=== PATIENT | male | born 1965 | race Caucasian/White ===

== ENCOUNTER 2020-01-11 11:13 | Outpatient (REF) | payer OTHER, SELFPAY | END 2020-01-11 11:14 | disposition home or self-care (01) | LOC: HO.LAB 11:13 | PROVIDERS: Visit Provider Internal Medicine | DX: Z20.828 Contact with and (suspected) exposure to other viral communicable diseases (principal) | CPT/HCPCS: 87635 ==

== ENCOUNTER 2020-01-25 14:01 | Outpatient (REF) | payer OTHER, SELFPAY ==
--- NOTE | 2020-01-25 14:08 | XR_ITS ---
EXAMINATION: XR TIBIA AND FIBULA, LEFT CLINICAL INFORMATION: Left tibial pain COMPARISON: Report without films of August 23, 2005 TECHNIQUE: AP and lateral views of the left tibia and fibula were obtained. FINDINGS: There is no evidence of acute fracture or dislocation of the right tibia or fibula. There is some spurring seen involving the patellofemoral joint. There appears be some subchondral cyst formation about the medial tibial plateau and some shouldering involving the metaphyseal diaphyseal junction which may be related to previous trauma. Ankle joint appears unremarkable. XR/XR tibia fibula LT 2V IMPRESSION: No acute fracture or dislocation of the left tibia or fibula. Question old trauma involving the medial tibial plateau.
== END 2020-01-25 14:02 | disposition home or self-care (01) ==
LOC: HO.XRAY 14:01
PROVIDERS: PCP Internal Medicine; Visit Provider Internal Medicine
DX: M79.662 Pain in left lower leg (principal)
CPT/HCPCS: 73590

== ENCOUNTER 2020-02-01 08:39 | Day surgery (SDC) | payer OTHER, SELFPAY ==
[2020-01-28 15:59] VITALS: BMI 33.0
--- NOTE | 2020-01-31 09:46 | P.CONAN_ITS ---
Documented by User: Sahara Cuello 01/31/20 09:47 HPI - Anesthesia Eval Consult details Narrative: 54yo M for Colonoscopy [facility] Past Medical History Medical History BPH (benign prostatic hyperplasia) Enlarged prostate Renal calculi Sleep apnea in adult Surgical History Surgical History Hx of tonsillectomy S/P carpal tunnel release Social History Social History Alcohol intake: never Smoking Status: Never smoker Advance Directives: No Advance Directives Information Provided: No Advance Directives on File: No Meds Allergies Allergy/AdvReac Type Severity Reaction Status Date / Time Motrin Allergy Severe swelling Uncoded 01/28/20 15:57 Home Medications Medication Instructions Recorded Confirmed Type acetaminophen [Tylenol] 650 mg PO Q6H PRN 01/28/20 01/28/20 History Exam Exam Date and Time: January 31, 2020 0946 Height,Weight and Vital Signs: Height 5 ft 8 in Weight 98.43 kg Pertinent Lab Results Pertinent Lab Results: Laboratory Tests 09/19/19 09/19/19 07:47 07:47 WBC 7.7 Hgb 14.5 Hct 44.8 Plt Count 258 Sodium 140 Potassium 4.5 Chloride 104 BUN 19 H Creatinine 0.81 Assessment and Plan Assessment Anesthesia Assessment: Chart Reviewed Documented by User: Junior Velasquez 02/01/20 09:33 [facility] Past Medical History Medical History BPH (benign prostatic hyperplasia) Enlarged prostate Renal calculi Sleep apnea in adult Surgical History Surgical History Hx of tonsillectomy S/P carpal tunnel release Social History Social History Alcohol intake: never Smoking Status: Never smoker Advance Directives: No Advance Directives Information Provided: No Advance Directives on File: No Meds Allergies Allergy/AdvReac Type Severity Reaction Status Date / Time Motrin Allergy Severe swelling Uncoded 01/28/20 15:57 Home Medications Medication Instructions Recorded Confirmed Type acetaminophen [Tylenol] 650 mg PO Q6H PRN 01/28/20 01/28/20 History Exam Airway Mallampati Class: II TM Dist: >3cm Neck ROM: Full Loose/Missing/Broken Teeth: No Heart: [id number] Lungs: cts b/l Assessment and Plan Assessment Anesthesia Assessment: Anesthesia Plan Discussed, Smoking Cess. Discussed, PAT Visit and Chart Reviewed Final Anesthetic Review NPO: Yes ASA Class: II Final Preanesthetic Review: No Changes in Pt Med Stat, Meds/Allgs Chart Reviewed, Consent Obtained/Reviewed and Anes Risks/Benef Reviewed Patient Risk: Low Procedure Risk: Low Anesthetic Plan Anesthetic Plan: MAC: Disposition: Standard PACU
[2020-02-01 09:13] VITALS: BP 134/91; PULSE 79; RESP 20; TEMP 36.1; O2SAT 97
[2020-02-01] MEDS: Lactated Ringers 1,000 ML 100 ML IVCONT (09:23)
[2020-02-01 10:48] VITALS: BP 112/69; PULSE 81; RESP 12; TEMP 36.3; O2SAT 95
--- NOTE | 2020-02-01 10:52 | PM.OP ---
Brief Operative Note Date of Service: 02/01/20 Pre-op diagnosis: Screening Post-op diagnosis: other (Colon polyps) Procedure: Colonoscopy to cecum and TI with snare polypectomy Surgeon: Hemanth Santos Anesthesia: MAC Estimated blood loss (mL): 0 Pathology: other (A. Polyp at 50cm B. Transverse colon polyp) Condition: stable Disposition: PACU
--- NOTE | 2020-02-01 11:00 | OP_ITS ---
SURGEON: Hemanth Santos MD INDICATIONS: The patient presents for evaluation of colorectal cancer screening and family history of colon cancer. Full consent has been obtained from him for this, including risks of bleeding and perforation. PREOPERATIVE DIAGNOSIS: POSTOPERATIVE DIAGNOSIS: PROCEDURE PERFORMED: Colonoscopy to the cecum and terminal ileum with snare polypectomy. ESTIMATED BLOOD LOSS: COMPLICATIONS: ANESTHESIA: Monitored anesthesia care. ASSISTANTS: SPECIMENS: PREOPERATIVE DIAGNOSES: Colorectal cancer screening, family history of colon cancer. POSTOPERATIVE DIAGNOSES: Colorectal cancer screening, family history of colon cancer, colon polyps, internal hemorrhoids. DESCRIPTION OF PROCEDURE: The patient was placed in the left lateral decubitus position. The digital rectal exam revealed no abnormalities. The Olympus video pediatric colonoscope was entered into the rectum and advanced easily to the cecum. Once in the cecum, I did identify normal-appearing cecal pouch with appendiceal orifice and a normal-appearing ileocecal valve. The terminal ileum was cannulated and appeared normal. The scope was withdrawn back in the colon. The entire cecum and ileocecal valve appeared normal. The scope was slowly withdrawn assessing all mucosal surfaces carefully. Preparation was excellent. In the transverse colon, was an approximately 8 mm polyp, which was snared and recovered by suction. The polypectomy site appeared clean, without any sign of residual polyp nor bleeding. At 50 cm, there was an approximately 5 or 6 mm polyp, which was snared and recovered by suction. The polypectomy site appeared clean, without any sign of residual polyp nor bleeding. I did not visualize any other polyps, colitis, nor angiodysplasia. In the rectum, scope was retroflexed visualizing small internal hemorrhoids, but no other pathology. The rectal mucosa appeared normal. The scope was straightened out and withdrawn from the patient. He tolerated the procedure well and was returned to the recovery area in stable condition. IMPRESSION: 1. Colon polyps, status post snare polypectomy. 2. Internal hemorrhoids. PLAN: The results of the pathology will be checked. Even if these are not tubular adenoma, I would recommend a followup colonoscopy in 5 years for further screening given the family history of colon cancer in his mother. He was advised not to use any aspirin and NSAIDs for 1 week. This has been discussed with his . MD ROJAS Hoang/CLIFFORD / [phone] [facility]PITALMikayla
[2020-02-01 11:10] VITALS: BP 119/81; PULSE 78; RESP 18; TEMP 36.3; O2SAT 98
--- NOTE | 2020-02-01 11:42 | HO.POSTANES ---
Post Anesthesia Evaluation Post Anesthesia Evaluation Vital Signs: Vital Signs Temp Pulse Resp BP Pulse Ox 02/01/20 11:10 97.3 F 78 18 119/81 98 02/01/20 10:48 97.3 F 81 12 112/69 95 02/01/20 09:13 97.0 F 79 20 134/91 H 97 Anesthesia: Monitored Mental Status: Awake Pain Control: Satisfactory Nausea/Vomiting: None Hydration: Adequate Anesthesia-Related Issues: No Anes. Related Issues
== END 2020-02-01 11:35 | disposition home or self-care (01) ==
PROVIDERS: PCP Internal Medicine; Visit Provider Internal Medicine
PROC: 0DJD8ZZ Inspection of Lower Intestinal Tract, Via Natural or Artificial Opening Endoscopic (ICD-10-PCS; CPT 45378; principal; 2020-02-01 09:40)
DX: Z12.11 Encounter for screening for malignant neoplasm of colon (principal); Z80.0 Family history of malignant neoplasm of digestive organs; D12.3 Benign neoplasm of transverse colon; K63.5 Polyp of colon; K64.8 Other hemorrhoids; N40.0 Benign prostatic hyperplasia without lower urinary tract symptoms; G47.33 Obstructive sleep apnea (adult) (pediatric); Z87.442 Personal history of urinary calculi; Z88.8 Allergy status to other drugs, medicaments and biological substances
CPT/HCPCS: 45385; 88305

== ENCOUNTER 2020-03-24 11:45 | Outpatient (REF) | payer OTHER, SELFPAY ==
--- NOTE | 2020-03-24 12:21 | XR_ITS ---
EXAMINATION: BILATERAL KNEE AND LEFT KNEE. CLINICAL INFORMATION: Left knee pain. COMPARISON: None TECHNIQUE: AP bilateral knee. Left knee 2 views. FINDINGS: AP BILATERAL KNEE: There is mild reduction in the medial compartment joint space bilateral knees the lateral compartment joint space is maintained bilaterally.. LEFT KNEE: There is mild loss of patellofemoral compartment joint space with periarticular spurring. There is a small osteophyte along the superior and inferior patella and small enthesophyte along the anterior patella. No visible acute fracture or dislocation. No abnormal joint effusion. XR/XR knee standing BI IMPRESSION: Degenerative joint changes patellofemoral and medial compartment left knee and mild degenerative changes medial compartment right knee. No visible acute fracture or dislocation seen.
--- NOTE | 2020-03-24 12:21 | XR_ITS ---
EXAMINATION: BILATERAL KNEE AND LEFT KNEE. CLINICAL INFORMATION: Left knee pain. COMPARISON: None TECHNIQUE: AP bilateral knee. Left knee 2 views. FINDINGS: AP BILATERAL KNEE: There is mild reduction in the medial compartment joint space bilateral knees the lateral compartment joint space is maintained bilaterally.. LEFT KNEE: There is mild loss of patellofemoral compartment joint space with periarticular spurring. There is a small osteophyte along the superior and inferior patella and small enthesophyte along the anterior patella. No visible acute fracture or dislocation. No abnormal joint effusion. XR/XR knee LT 2V IMPRESSION: Degenerative joint changes patellofemoral and medial compartment left knee and mild degenerative changes medial compartment right knee. No visible acute fracture or dislocation seen.
== END 2020-03-24 11:46 | disposition home or self-care (01) ==
LOC: HO.HOSX 11:45
PROVIDERS: Visit Provider Orthopaedic Surgery
DX: M70.50 Other bursitis of knee, unspecified knee (principal); M25.562 Pain in left knee
CPT/HCPCS: 73560; 73565

== ENCOUNTER 2020-03-28 09:57 | Outpatient (REF) | payer OTHER, SELFPAY | END 2020-03-28 09:58 | disposition home or self-care (01) | LOC: HO.LAB 09:57 | PROVIDERS: Visit Provider Internal Medicine | DX: Z20.828 Contact with and (suspected) exposure to other viral communicable diseases (principal) | CPT/HCPCS: 36415; C9803; U0003 ==

== ENCOUNTER 2020-04-14 16:38 | Outpatient (REF) | payer OTHER, SELFPAY | END 2020-04-14 16:39 | disposition home or self-care (01) | LOC: HO.LAB 16:38 | PROVIDERS: PCP Internal Medicine; Visit Provider Internal Medicine | DX: Z20.822 Contact with and (suspected) exposure to COVID-19 (principal) | CPT/HCPCS: 36415; C9803; U0003 ==

== ENCOUNTER 2020-08-22 04:58 | Emergency (ER) | payer OTHER, SELFPAY ==
--- NOTE | ~2020-08-22 | US_ITS ---
EXAMINATION: US ABDOMEN LIMITED CLINICAL INFORMATION: Cholelithiasis, right upper quadrant pain. COMPARISON: CT scan of the abdomen and pelvis performed earlier today. TECHNIQUE: Real-time imaging of the right upper quadrant abdominal viscera. FINDINGS: PANCREAS: Visualized portions unremarkable. LIVER: Small cyst in the left lobe measuring 0.7 cm. A second cyst measures 1.2 cm. GALLBLADDER: Gallstones measuring up to 2.0 cm. No mural thickening or pericholecystic fluid. COMMON BILE DUCT: Normal in caliber measuring 0.3 cm in diameter. RIGHT KIDNEY: 12.4 cm. Unremarkable. FREE FLUID: None. US/US abdomen limited IMPRESSION: 1. Cholelithiasis without evidence for acute cholecystitis. 2. Small hepatic cysts demonstrate overall benign features.
--- NOTE | ~2020-08-22 | CT_ITS ---
EXAMINATION: CT ABDOMEN AND PELVIS WITH CONTRAST CLINICAL INFORMATION: Abdominal pain COMPARISON: 05/03/2010 TECHNIQUE: Multidetector volumetric images were obtained from the superior aspect of the liver through the pubic symphysis following administration 85 mL of Omnipaque 350 intravenous contrast. Sagittal and coronal reformatted images were obtained on the technologist's workstation. Oral contrast: No This CT examination was performed using dose optimization techniques as appropriate, variously including the following: *Automated exposure control *Adjustment of mA and/or kV according to patient size (this includes techniques or standardized protocols for targeted exams where dose is matched to indication/reason for exam; i.e. extremities or head) *Use of iterative reconstruction technique DLP: 783 mGy-cm FINDINGS: LUNG BASES: Minor discoid atelectasis or scarring right base. LIVER, GALLBLADDER, AND BILIARY TREE: The liver is normal in size, shape, and attenuation. Ill-defined low-density subcentimeter focus dome of liver image junction of segment 8 and 4A measuring only 7 mm. No biliary dilatation. There is a large stone within the gallbladder lumen without gallbladder distention or acute inflammatory changes. PANCREAS: Unremarkable. SPLEEN: Unremarkable. ADRENAL GLANDS: Unremarkable. KIDNEYS AND URETERS: The kidneys are normal in size, shape, and attenuation. No hydronephrosis, hydroureter, or calculi seen. No perinephric stranding. BLADDER: Unremarkable. GASTROINTESTINAL TRACT: The small and large bowel are unremarkable. The appendix is unremarkable. ABDOMINAL WALL: Tiny fat-containing umbilical hernia LYMPH NODES: Normal. VASCULAR: Unremarkable. PELVIC VISCERA: Unremarkable. OSSEOUS STRUCTURES: Spondylolysis L5 with grade [address]/CT abdomen pelvis w con IMPRESSION: Large gallstone without definite acute inflammatory changes. Subcentimeter tiny hepatic lesion statistically a small cyst or hemangioma. No bowel pathology.
[2020-08-22 05:16] VITALS: BP 131/97; PULSE 77; RESP 16; TEMP 36.4; O2SAT 98; BMI 31.9
--- NOTE | 2020-08-22 05:17 | ED_ITS ---
HPI - Abdominal Pain General Chief Complaint: Abdominal Pain Stated Complaint: Abd pain Time Seen by Provider: 08/22/20 05:17 Source: patient Mode of arrival: ambulatory History of Present Illness HPI narrative: 54-year-old male with presentation for the 3rd day of mid abdominal pain associated with 2 episodes of nausea and vomiting and denies any diarrhea or urinary symptoms. Patient states that the pain has continued throughout the night and he has had very little to eat since the night before last. He denies any past surgical history, fevers, chills. Related Data Home Medications Medication Instructions Recorded Confirmed acetaminophen [Tylenol] 650 mg PO Q6H PRN 01/28/20 01/28/20 Previous Rx's Medication Instructions Recorded naproxen 500 mg tablet,delayed 500 mg PO BID #30 tab 03/24/20 release Allergies Allergy/AdvReac Type Severity Reaction Status Date / Time Motrin Allergy Severe swelling Uncoded 08/22/20 05:16 Review of Systems Review of Systems Pertinent positives and negatives as stated in HPI 10 point review of systems is otherwise negative. Physical Exam Vital Signs: Vital Signs: Last Vital Signs Temp 97.5 F 08/22/20 05:16 Pulse 77 08/22/20 05:16 Resp 16 08/22/20 05:16 BP 131/97 H 08/22/20 05:16 Pulse Ox 98 08/22/20 05:16 Body Mass Index 31.9 VITAL SIGNS: Reviewed. GENERAL: Well developed, well nourished, in no acute distress. HEAD: Normocephalic/atraumatic EYES: PERRLA, EOMI NOSE: Nares patent bilateral OROPHARYNX: no oral lesions noted, posterior pharynx clear NECK: Supple, no adenopathy LUNGS: Normal breath sounds. No adventitious sounds or accessory muscle use. SpO2<98> CARDIOVASCULAR: Regular rate and rhythm without noted murmurs ABDOMEN: Soft, non-tender, non-distended with bowel sounds., no CVA tenderness Course Course Course Narrative: 54-year-old male with history and clinical presentation sug gestive of diverticulitis, appendicitis, renal colic. Signed out to Dr Guy. MDM - Abdominal Pain Lab Data Result diagrams: 08/22/20 05:41 08/22/20 05:42 Labs: Lab Results 08/22/20 08/22/20 Range/Units 05:41 05:42 WBC 9.1 (4.8-10.8) X10*3/uL RBC 4.98 (4.60-5.80) X10*6/uL Hgb 15.1 (14.0-18.0) g/dl Hct 44.3 (42-52) % MCV 89.0 (80-98) fL MCH 30.3 (27.0-33.0) pg MCHC 34.1 (31.0-36.0) g/dl RDW 12.0 (11.0-16.0) % Plt Count 301 (160-400) X10*3/uL MPV 10.6 (9.4-12.4) fL Immature Gran % (Auto) 0.2 (0.0-0.4) % Neut % (Auto) 73.0 (45-73) % Lymph % (Auto) 16.7 L (20-40) % [place] % (Auto) 7.3 (2-11) % Eos % (Auto) 2.1 (0-4) % Baso % (Auto) 0.7 (0-2) % Lymph # (Auto) 1.5 (1.2-4.9) X10*3/uL [place] # (Auto) 0.7 (0.1-1.2) X10*3/uL Eos # (Auto) 0.2 (0.0-0.4) X10*3/uL Baso # (Auto) 0.1 (0.0-0.2) X10*3/uL Abs Immat Gran (auto) 0.02 (0.00-0.03) X10*3/uL Absolute Neuts (auto) 6.6 (2.0-8.3) X10*3/uL Absolute Nucleated RBC 0.000 (0.0-0.012) X10*3/uL Nucleated RBC % (auto) 0.0 (0.0-0.2) /100WBC Sodium 138 (135-145) mmol/L Potassium 4.5 (3.3-5.1) mmol/L Chloride 103 (96-108) mmol/L Carbon Dioxide 27 (22-29) mmol/L Anion Gap 13 (12-20) BUN 12 (9-16) mg/dL Creatinine 0.79 (0.5-1.4) mg/dL Estim Creat Clear Calc 122.4 Estimated GFR > 60 Random Glucose 118 H (60-115) mg/dL Calcium 9.5 (8.4-10.2) mg/dL Total Bilirubin 1.1 H (0.0-1.0) mg/dL AST 18 (5-37) U/L ALT 25 (0-40) U/L Alkaline Phosphatase 86 (39-117) U/L Total Protein 7.0 (6.5-8.0) g/dL Albumin 4.2 (3.5-5.0) g/dL Lipase 29 (8-78) U/L Discharge Plan Discharge Prescriptions: No Action acetaminophen [Tylenol] 325 mg Tablet 650 mg PO Q6H PRN (Reason: Pain) RF: 0 naproxen [EC-Naprosyn] 500 mg tablet,delayed release (DR/EC) 500 mg PO BID Qty: 30 RF: 0 PMFSH Past Medical History Source: nursing notes reviewed Medical History BPH (benign prostatic hyperplasia) Enlarged prostate Renal calculi Sleep apnea in adult Surgical History Hx of tonsillectomy S/P carpal tunnel release Social History Social History Alcohol intake: never Advance Directives: No Advance Directives Information Provided: No Current occupational status: employed 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
[2020-08-22 05:45] LABS: MANUAL DIFF FLAG NO
[2020-08-22 05:46] LABS: Basophils Absolute Auto 0.1 X10*3/uL (0.0-0.2); Basophils Percent Auto 0.7 % (0-2); Eosinophils Absolute Auto 0.2 X10*3/uL (0.0-0.4); Eosinophils Percent Auto 2.1 % (0-4); Hematocrit 44.3 % (42-52); Hemoglobin 15.1 g/dl (14.0-18.0); Imm Gran Abs Auto 0.02 X10*3/uL (0.00-0.03); Imm Gran Pct Auto 0.2 % (0.0-0.4); Lymphocytes Absolute Auto 1.5 X10*3/uL (1.2-4.9); Lymphocytes Percent Auto 16.7 % (20-40); Mean Corpuscular HGB Conc 34.1 g/dl (31.0-36.0); Mean Corpuscular Hemoglobin 30.3 pg (27.0-33.0); Mean Platelet Volume 10.6 fL (9.4-12.4); Monocytes Absolute Auto 0.7 X10*3/uL (0.1-1.2); Monocytes Percent Auto 7.3 % (2-11); Neutrophils Absolute Auto 6.6 X10*3/uL (2.0-8.3); Platelet Count 301 X10*3/uL (160-400); Red Blood Count 4.98 X10*6/uL (4.60-5.80); White Blood Count 9.1 X10*3/uL (4.8-10.8)
[2020-08-22 06:11] LABS: Alanine Aminotransferase 25 U/L (0-40); Albumin Level 4.2 g/dL (3.5-5.0); Alkaline Phosphatase 86 U/L (39-117); Anion Gap 13 (12-20); Aspartate Amino Transferase 18 U/L (5-37); Bilirubin Total 1.1 mg/dL (0.0-1.0); Blood Urea Nitrogen 12 mg/dL (9-16); Calcium 9.5 mg/dL (8.4-10.2); Carbon Dioxide 27 mmol/L (22-29); Chloride 103 mmol/L (96-108); Creatinine Clr Calc Pharmacy 122.4; Estimated Glomerular Filt Rate > 60; Glucose Random 118 mg/dL (60-115); Lipase 29 U/L (8-78); Potassium 4.5 mmol/L (3.3-5.1); Sodium 138 mmol/L (135-145)
[2020-08-22] MEDS: iohexoL 350 MG/ML 100 ML INFUS..BTL 85 ML IV (06:40)
[2020-08-22 06:57] VITALS: BP 148/95; PULSE 76; RESP 18; O2SAT 97
--- NOTE | 2020-08-22 07:04 | PC.NURSE ---
report taken from Gabriel LOPEZ. pt in room awaiting CT scan results. started 1L of NS.
[2020-08-22] MEDS: 0.9 % Sodium Chloride 1,000 ML 999 ML IV (07:09)
[2020-08-22 09:10] VITALS: RESP 16
== END 2020-08-22 09:40 | disposition home or self-care (01) ==
PROVIDERS: Student in an Organized Health Care Education/Training Program; Emergency Provider Emergency Medicine Emergency Medical Services; PCP Internal Medicine
DX: K80.20 Calculus of gallbladder without cholecystitis without obstruction (principal); R10.9 Unspecified abdominal pain
CPT/HCPCS: 36415; 74177; 76705; 80053; 83690; 85025; 96360; 96361; 99284; Q9967

== ENCOUNTER → 2020-08-28 10:21 | Outpatient (BNVA) | payer OTHER, SELFPAY | PROVIDERS: PCP Internal Medicine; Visit Provider Surgery ==

== ENCOUNTER 2020-08-31 02:41 | Emergency (ER) | payer OTHER, SELFPAY ==
[2020-08-31 02:57] VITALS: BP 131/89; PULSE 86; RESP 18; TEMP 36.6; O2SAT 100; BMI 31.9
[2020-08-31 03:01] LABS: MANUAL DIFF FLAG NO
[2020-08-31 03:02] LABS: Basophils Absolute Auto 0.1 X10*3/uL (0.0-0.2); Basophils Percent Auto 0.8 % (0-2); Eosinophils Absolute Auto 0.3 X10*3/uL (0.0-0.4); Eosinophils Percent Auto 4.2 % (0-4); Hematocrit 34.9 % (42-52); Hemoglobin 11.9 g/dl (14.0-18.0); Imm Gran Abs Auto 0.02 X10*3/uL (0.00-0.03); Imm Gran Pct Auto 0.3 % (0.0-0.4); Lymphocytes Absolute Auto 1.8 X10*3/uL (1.2-4.9); Lymphocytes Percent Auto 24.1 % (20-40); Mean Corpuscular HGB Conc 34.1 g/dl (31.0-36.0); Mean Corpuscular Hemoglobin 30.7 pg (27.0-33.0); Mean Corpuscular Volume 90.2 fL (80-98); Mean Platelet Volume 10.5 fL (9.4-12.4); Monocytes Absolute Auto 0.8 X10*3/uL (0.1-1.2); Monocytes Percent Auto 10.3 % (2-11); Neutrophils Absolute Auto 4.4 X10*3/uL (2.0-8.3); Neutrophils Percent Auto 60.3 % (45-73); Platelet Count 309 X10*3/uL (160-400); Red Blood Count 3.87 X10*6/uL (4.60-5.80); Red Cell Distribution Width 12.4 % (11.0-16.0); White Blood Count 7.4 X10*3/uL (4.8-10.8)
[2020-08-31 03:32] LABS: Alanine Aminotransferase 21 U/L (0-40); Albumin Level 4.1 g/dL (3.5-5.0); Alkaline Phosphatase 93 U/L (39-117); Anion Gap 13 (12-20); Aspartate Amino Transferase 19 U/L (5-37); Bilirubin Total 0.5 mg/dL (0.0-1.0); Blood Urea Nitrogen 20 mg/dL (9-16); Calcium 8.7 mg/dL (8.4-10.2); Carbon Dioxide 24 mmol/L (22-29); Chloride 106 mmol/L (96-108); Creatinine Clr Calc Pharmacy 111.1; Estimated Glomerular Filt Rate > 60; Glucose Random 125 mg/dL (60-115); Sodium 139 mmol/L (135-145); Total Protein 6.5 g/dL (6.5-8.0)
[2020-08-31 05:35] LABS: Glucose Urine UA NEG (NEG); Leukocyte Esterase Urine NEG (NEG); Nitrite Urine NEG (NEG); Specific Gravity - Urine >= 1.030 (1.005-1.025); Urine Blood NEG (NEG); Urine Ketones NEG (NEG); Urine Protein TRACE MG/DL (NEG-TRACE)
[2020-08-31 05:38] LABS: Appearance Urine CLEAR; Color Urine YELLOW
[2020-08-31 06:00] VITALS: BP 128/74; PULSE 75; RESP 16; TEMP 36.9; O2SAT 97
--- NOTE | 2020-08-31 06:03 | ED_ITS ---
HPI - Abdominal Pain General Chief Complaint: Abdominal Pain Stated Complaint: Abd pain Time Seen by Provider: 08/31/20 06:01 History of Present Illness HPI narrative: Patient is a 54-year-old male with a history of biliary colic. Scheduled for gallbladder surgery. Presents today for having abdominal pain after eating a ham sandwich. The pain is in the epigastric and right upper quad rant. Patient denies any bowel urinary incontinence. There was no fever no chills. Pain is excruciating radiates to the back. Patient is from home. No chest pain or shortness of breath no diaphoresis. No cough no congestion or upper respiratory symptoms. Patient is from home. Related Data Home Medications Medication Instructions Recorded Confirmed acetaminophen [Tylenol] 650 mg PO Q6H PRN 01/28/20 08/28/20 Previous Rx's Medication Instructions Recorded naproxen 500 mg tablet,delayed 500 mg PO BID #30 tab 03/24/20 release pantoprazole [Protonix] 40 mg PO DAILY #14 tab 08/22/20 Allergies Allergy/AdvReac Type Severity Reaction Status Date / Time Motrin Allergy Severe swelling Uncoded 08/22/20 05:16 Review of Systems Review of Systems Constitutional: No Weight loss, No Fever, No Chills, No Night Sweats, No Fatigue, No Malaise ENT/Mouth: No Hearing loss, No Ear Pain, No Nasal Congestion, No Sinus Pain, No Hoarseness, No sore throat, No Rhinorrhea, No Swallowing Difficulty Eyes: No Eye Pain, No Swelling, No Redness, No Foreign Body, No Discharge, No Vision Changes Cardiovascular: No Chest Pain, No SOB, No Dyspnea on Exertion, No Orthopnea, No Edema, No Palpitations Respiratory: No Cough, No Sputum, No Wheezing, No Smoke Exposure, No Dyspnea Gastrointestinal: Positive Nausea, positive Vomiting, No Diarrhea, No Constipation, positive abdominal Pain, No Hematochezia, No Melena Genitourinary: no irregular bleeding, No Dysuria, No Urinary Frequency, No Hematuria, No Urinary Incontinence, No Urgency, No Flank Pain, No Urinary Flow Changes, No Hesitancy Musculoskeletal: No joint pain, No Myalgias, No Joint Swelling Skin: No Skin Lesions, No rash Neuro: No Weakness, No Numbness, No Paresthesias, No Loss of Consciousness, No Dizziness, No Headache Psych: No Anxiety/Panic, No Depression, No SI/HI/AH/VH, No Social Issues, Heme/Lymph: No Bruising, No Bleeding,No Lymphadenopathy Endocrine: No Polyuria, No Polydipsia, No Temperature Intolerance Physical Exam Vital Signs: Vital Signs: Last Vital Signs Temp 98.5 F 08/31/20 06:00 Pulse 75 08/31/20 06:00 Resp 16 08/31/20 06:00 BP 128/74 08/31/20 06:00 Pulse Ox 97 08/31/20 06:00 Body Mass Index 31.9 Appearance: Alert. Oriented X3. No acute distress. Eyes: Pupils equal, round and reactive to light. ENT: Pharynx normal. Neck: Normal inspection. Neck supple. No lymph nodes noted. No crepitus CVS: Normal heart rate and rhythm. Pulses normal. Normal S1 and S2 Respiratory: No respiratory distress. Breath sounds normal. No Wheezing. No rales Abdomen: Soft and nontender. No rigidity. No distention. good BS x4 Skin: Skin warm and dry. Normal skin color. Normal skin turgor. Extremities: No lower extremity edema. Neurovascular intact to all extremities. No Lacerations. No Rash Neuro: Oriented X 3. No motor deficit. No sensory deficit. Moving all extermities. No slurred speech MDM - Abdominal Pain MDM Narrative Medical decision making narrative: Patient has a history of biliary colic. Ate a ham sandwich. Subsequently the pain got much worse. White count is normal LFTs are normal. Will get a lipase. We will give pain medication see if symptom improved. Will monitor carefully. Likely biliary colic. Currently in stable condition. Patient's symptom improved after a dose of Dilaudid. LFTs are normal. Lipase i s normal. No evidence for pancreatitis. Patient's white count is normal. Pain is control has follow-up with surgery on an outpatient basis ultrasound positive for gallstones in the past. Will discharge patient home with biliary colic. Patient again warned not to eat anything fatty. To closely follow-up with surgery on an outpatient basis Lab Data Result diagrams: 08/31/20 02:57 08/31/20 02:57 Labs: Lab Results 08/31/20 08/31/20 08/31/20 Range/Units 02:57 02:57 05:28 WBC 7.4 (4.8-10.8) X10*3/uL RBC 3.87 L D (4.60-5.80) X10*6/uL Hgb 11.9 L D (14.0-18.0) g/dl Hct 34.9 L D (42-52) % MCV 90.2 (80-98) fL MCH 30.7 (27.0-33.0) pg MCHC 34.1 (31.0-36.0) g/dl RDW 12.4 (11.0-16.0) % Plt Count 309 (160-400) X10*3/uL MPV 10.5 (9.4-12.4) fL Immature Gran % (Auto) 0.3 (0.0-0.4) % Neut % (Auto) 60.3 (45-73) % Lymph % (Auto) 24.1 (20-40) % [place] % (Auto) 10.3 (2-11) % Eos % (Auto) 4.2 H (0-4) % Baso % (Auto) 0.8 (0-2) % Lymph # (Auto) 1.8 (1.2-4.9) X10*3/uL [place] # (Auto) 0.8 (0.1-1.2) X10*3/uL Eos # (Auto) 0.3 (0.0-0.4) X10*3/uL Baso # (Auto) 0.1 (0.0-0.2) X10*3/uL Abs Immat Gran (auto) 0.02 (0.00-0.03) X10*3/uL Absolute Neuts (auto) 4.4 (2.0-8.3) X10*3/uL Absolute Nucleated RBC 0.000 (0.0-0.012) X10*3/uL Nucleated RBC % (auto) 0.0 (0.0-0.2) /100WBC Sodium 139 (135-145) mmol/L Potassium 4.0 (3.3-5.1) mmol/L Chloride 106 (96-108) mmol/L Carbon Dioxide 24 (22-29) mmol/L Anion Gap 13 (12-20) BUN 20 H D (9-16) mg/dL Creatinine 0.87 (0.5-1.4) mg/dL Estim Creat Clear Calc 111.1 Estimated GFR > 60 Random Glucose 125 H (60-115) mg/dL Calcium 8.7 D (8.4-10.2) mg/dL Total Bilirubin 0.5 (0.0-1.0) mg/dL AST 19 (5-37) U/L ALT 21 (0-40) U/L Alkaline Phosphatase 93 (39-117) U/L Total Protein 6.5 (6.5-8.0) g/dL Albumin 4.1 (3.5-5.0) g/dL Lipase 54 (8-78) U/L Urine Color YELLOW Urine Appearance CLEAR Urine pH 6.0 (5.0-8.0) Ur Specific [place] >= 1.030 H (1.005-1.025) Urine Protein TRACE (NEG-TRACE) MG/DL Urine Glucose (UA) NEG (NEG) MG/DL Urine Ketones NEG (NEG) MG/DL Urine Blood NEG (NEG) Urine Nitrite NEG (NEG) Ur Leukocyte Esterase NEG (NEG) Discharge Plan Discharge Clinical Impression: Biliary colic Patient Disposition: Home, Self-Care Instructions: Biliary Colic (ED) Prescriptions: No Action acetaminophen [Tylenol] 325 mg Tablet 650 mg PO Q6H PRN (Reason: Pain) RF: 0 pantoprazole [Protonix] 40 mg tablet,delayed release (DR/EC) 40 mg PO DAILY Qty: 14 RF: 0 naproxen [EC-Naprosyn] 500 mg tablet,delayed release (DR/EC) 500 mg PO BID Qty: 30 RF: 0 Referrals: Daryl Mcduffie MD [Physician] - 2 days [facility] Past Medical History Attestation statement: The following information was validated with the patient. 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
[2020-08-31] MEDS: HYDROmorphone HCl 0.5 MG/0.5 ML SYRINGE IVPUSH (06:10)
[2020-08-31] MEDS: ondansetron HCL 4 MG/2 ML VIAL IVPUSH (06:10)
[2020-08-31 06:23] LABS: Lipase 54 U/L (8-78)
--- NOTE | 2020-08-31 07:28 | PC.NURSE ---
PT DC TO HOME AXO4 AMB WITH STEADY GAIT. WILL FOLLOW UPWITH PCP
== END 2020-08-31 07:28 | disposition home or self-care (01) ==
PROVIDERS: Emergency Provider Emergency Medicine Emergency Medical Services; PCP Internal Medicine
DX: K80.50 Calculus of bile duct without cholangitis or cholecystitis without obstruction (principal)
CPT/HCPCS: 36415; 80053; 81003; 83690; 85025; 96374; 96375; 99284; J1170; J2405

== ENCOUNTER 2020-09-09 09:48 | Day surgery (SDC) | payer OTHER, SELFPAY ==
--- NOTE | 2020-09-08 08:54 | HO.ANESPROP2 ---
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 Meds Allergies Allergy/AdvReac Type Severity Reaction Status Date / Time Motrin Allergy Severe swelling Uncoded 08/22/20 05:16 Home Medications Medication Instructions Recorded Confirmed Last Taken Type acetaminophen [Tylenol] 650 mg PO Q6H PRN 01/28/20 08/28/20 Unknown History Exam Exam Date and Time: September 08, 2020 0854 Pertinent Lab Results Pertinent Lab Results: Laboratory Tests 08/31/20 08/31/20 02:57 02:57 WBC 7.4 Hgb 11.9 L D Hct 34.9 L D Plt Count 309 Sodium 139 Potassium 4.0 Chloride 106 Carbon Dioxide 24 BUN 20 H D Creatinine 0.87 Assessment and Plan Assessment Anesthesia Assessment: Chart Reviewed
[2020-09-09] VITALS (8 sets, daily range): BP systolic 126–160; BP diastolic 78–92; PULSE 71–87; RESP 14–20; TEMP 36.4–36.6; O2SAT 96–98; BMI 31.9
[2020-09-09] MEDS: Acetaminophen 325 MG TABLET 650 MG PO (10:15)
[2020-09-09] MEDS: Lactated Ringers 1,000 ML 100 ML IVCONT (10:33)
--- NOTE | 2020-09-09 11:14 | MHC.SHP ---
Pre-Procedural Eval Section B Chief Complaint: Gallstones Allergies: Allergies Allergy/AdvReac Type Severity Reaction Status Date / Time Motrin Allergy Severe swelling Uncoded 08/22/20 05:16 Plan I have reviewed the history and physical and performed a pertinent physical examination on my patient. No changes have occurred unless specified.
--- NOTE | 2020-09-09 11:35 | HO.ANESPROP2 ---
[facility] Active Problems Active Problems: All Active Problems (Updated 09/01/20 @ 00:01 by Osito Rowell) Gallstones (Acute) Past Medical History Medical History BPH (benign prostatic hyperplasia) Enlarged prostate Gallstones Renal calculi Sleep apnea in adult Family History Family history of problems with anesthesia: No Surgical History Surgical History Hx of tonsillectomy S/P carpal tunnel release History of Problems with Anesthesia: No Social History Social History Alcohol intake: never Patient Tobacco Use Status: Never used Tobacco Use of substances other than those prescribed or required for medical reasons: No Are you DNR?: No Advance Directives: No Advance Directives Information Provided: Yes Recently lost weight without trying: Yes How much weight loss: 2-13 pounds Eating poorly because of decreased appetite: Yes Nutrition screen score: 4 Nutrition Risks: No Nutritional Risk Poor oral hygiene: No Current occupational status: employed 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 Meds Allergies Allergy/AdvReac Type Severity Reaction Status Date / Time Motrin Allergy Severe swelling Uncoded 08/22/20 05:16 Active Medications: Current Medications Generic Name Dose Route Start Last Admin Trade Name Freq PRN Reason Stop Dose Admin Lactated Ringer's 1,000 mls @ 100 mls/hr 09/09/20 08:45 09/09/20 10:33 Lr IVCONT 100 mls/hr .Q10H MUMTAZ Administration Home Medications Medication Instructions Recorded Confirmed Last Taken Type acetaminophen [Tylenol] 650 mg PO Q6H PRN 01/28/20 08/28/20 Unknown History Exam Exam Date and Time: September 09, 2020 1135 Height,Weight and Vital Signs: Height 5 ft 8 in Weight 95.254 kg Last Vital Signs Temp 97.8 F 09/09/20 10:10 Pulse 82 09/09/20 10:10 Resp 16 09/09/20 10:10 BP 126/87 09/09/20 10:10 Pulse Ox 97 09/09/20 10:10 Airway Mallampati Class: I TM Dist: >3cm Neck ROM: Full Loose/Missing/Broken Teeth: No Assessment and Plan Assessment Anesthesia Assessment: Anesthesia Plan Discussed and Chart Reviewed Final Anesthetic Review NPO: Yes ASA Class: III Final Preanesthetic Review: No Changes in Pt Med Stat, Meds/Allgs Chart Reviewed, Consent Obtained/Reviewed and Anes Risks/Benef Reviewed Patient Risk: Low Procedure Risk: Low Anesthetic Plan Anesthetic Plan: GA and Agree w/ Assess. and Plan Disposition: Standard PACU
--- NOTE | 2020-09-09 12:56 | P.OP_ITS ---
Operative Note Operative Note Date of Service: 09/09/20 Narrative: Preop diagnosis: Symptomatic gallstones Postop diagnosis: The same Procedure: Laparoscopic cholecystectomy Surgeon: Daryl Mcduffie MD Foam Cutting Supervisor: None The patient is a 55-year-old male with periodic right upper quadrant pain and epigastric pain. He had gallstones on ultrasound and CAT scan. It appeared that his symptoms were secondary to his gallbladder disease. He wanted to proceed with cholecystectomy. He understood the technique of laparoscopic cholecystectomy and possible open cholecystectomy. He was aware of the risks, benefits, and alternatives. He was brought to the operating room and placed supine on the table under general anesthesia via endotracheal tube. The abdomen is prepped and draped in the usual sterile fashion. A surgical time-out was done. The patient received Cefotan 2 g IV preoperatively. I made a short supraumbilical incision using a blade 15. This carried down through the full-thickness of the skin and subcutaneous fat with blunt dissection. We then noticed a small hernia on the umbilicus which was actually seen on review of CT scan images. The bluntly dissected the hernia using an Adson clamp until we were able to reduce this completely. I used this hernia opening as my port site. I was able to enter the peritoneum to this hernia. I positioned the Dennis port through this defect. I insufflated to a pressure of 15 mm hg. From here on the rest of the procedure was done under vision with the laparoscope through this port. With laparoscopic visualization, inserted a 5/12 mm port in the epigastric area below the subcostal margin. Five mm port introduced through small incisions below the subcostal margin along the anterior axillary line and the midclavicular line. Graspers were placed through these working ports. The patient was placed in head-up and [id number] position. I was able to see the gallbladder which was supple and not inflamed. I applied a grasper at the fundus and this was used to retract the gallbladder cephalad. By doing so was able to expose the entire gallbladder. I applied on the grasper at its pouch and this was used to retract the gallbladder laterally. At this point therefore the gallbladder was being retracted in a cephalad and lateral fashion to put the area of the cystic duct on stretch and achieve optimal visualization of the entire gallbladder. I bluntly dissected the cystic duct by carefully teasing off the fibrous and peritoneal lining using the Maryland dissector off of the neck. By doing so I was able to clearly define its confluence with the neck of the gallbladder. I was able to actually see the cystic artery running alongside this posteriorly. With this blunt dissection using the Maryland dissector, was able to achieve a critical view of the hepatocystic triangle. There were no other tubular structures seen in this area except for the thin hilum. With confirmation of the cystic duct anatomy achieved, applied clips with 2 clips being applied distally. The cystic duct was transected with between clips with Endo scissors. I applied clips on the cystic artery as well after careful dissection with the Maryland dissector and this was resected between clips using the Endo scissors. With traction on the gallbladder away from the liver bed, I proceeded then divided across the hilum all the way to the interface of the gallbladder wall and the liver bed. I used electrocautery spatula to divide across this. I then incised the peritoneum of the gallbladder using this the cautery spatula and carefully define the plane of dissection between the gallbladder wall and the liver bed. I proceeded along this plane of dissection with a combination of blunt dissection with the tip of the spatula and electrocautery itself to carefully separate the gallbladder wall from the liver bed. I proceeded with this manner of dissection all the way to the fundus until the entire gallbladder was completely . The gallbladder was retrieved through an endobag through the umbilical incision. I reinserted all ports and re-insufflated. Examined all 4 quadrants with laparoscopic. There is no evidence of any bowel injury. There was note of good hemostasis on the subhepatic space and there was no signs of any bile leak Once hemostasis was confirmed I proceeded to then desufflate through the port sites. I removed all ports and removed the umbilical port last. I defined the hernia defect and used a Dexon 0 stitch in a [id number] fashion to close this hernia defect as the repair. All skin incisions were then closed with subcuticular running Dexon 4-0 sutures. All incisions were also infiltrated with Marcaine 0.5% for postop analgesia. Steri-Strips and dressings were applied. The procedure was then completed. The patient tolerated procedure well. There were no complications noted. Initial and final counts of sponges and instruments were correct. Estimated blood loss was about 20 cc. The patient was extubated without difficulty and transferred to the recovery room with stable vital signs.
--- NOTE | 2020-09-09 13:04 | P.BOP_ITS ---
Brief Operative Note Date of Service: 09/09/20 Pre-op diagnosis: Gallstones Post-op diagnosis: same Procedure: Laparoscopic cholecystectomy Surgeon: Daryl Mcduffie MD Anesthesia: GETA Was an Senior Drupal Developer used for this Procedure?: No Estimated blood loss (mL): 20 Pathology: other (Gallbladder) Condition: stable Disposition: PACU
[2020-09-09] MEDS: oxyCODONE HCl Immed Release 5 MG TABLET PO (13:18)
== END 2020-09-09 14:30 | disposition home or self-care (01) ==
PROVIDERS: PCP Internal Medicine; Visit Provider Surgery
PROC: 0FT44ZZ Resection of Gallbladder, Percutaneous Endoscopic Approach (ICD-10-PCS; CPT 47562; principal; 2020-09-09 11:50)
DX: K80.10 Calculus of gallbladder with chronic cholecystitis without obstruction (principal); K42.9 Umbilical hernia without obstruction or gangrene; N40.0 Benign prostatic hyperplasia without lower urinary tract symptoms; Z87.442 Personal history of urinary calculi
CPT/HCPCS: 47562; 88304; J1100; J1885; J2405; J3010

== ENCOUNTER → 2020-09-24 15:11 | Outpatient (BNVA) | payer OTHER, SELFPAY | PROVIDERS: PCP Internal Medicine; Visit Provider Surgery ==

== ENCOUNTER 2021-01-17 22:33 | Inpatient (IN) | payer OTHER, SELFPAY ==
[2021-01-17 22:42] VITALS: BP 111/73; PULSE 109; RESP 16; TEMP 36.4; O2SAT 97; BMI 31.9
[2021-01-18] VITALS (12 sets, daily range): BP systolic 100–128; BP diastolic 65–82; PULSE 66–106; RESP 14–21; TEMP 36.2–37.1; O2SAT 95–99
--- NOTE | 2021-01-18 00:12 | ED.NAVMDI ---
HPI - Nausea/Vomiting/Diarrhea General Chief complaint: Nausea/Vomiting/Diarrhea Stated complaint: vomiting,diarrhea Time Seen by Provider: 01/17/21 22:49 Source: patient Mode of arrival: ambulatory Limitations: no limitations History of Present Illness HPI Narrative: Patient is status post laparoscopic cholecystectomy done on 09/12/20 with no history of any peptic ulcer disease, nonsmoker nonalcoholic been feeling sick to his stomach nauseated since morning just prior to arrival started vomiting coffee colored massive amount along with same color stool. Patient took Pepto-Bismol after vomiting started but coffee colored was before he took Pepto-Bismol. Patient had COVID booster shot yesterday no fever no chills no dizziness feels weak , does not take any NSAID patient had last colonoscopy 2019 was negative. Related Data Home Medications Medication Instructions Recorded Confirmed acetaminophen 325 mg tablet 650 mg PO Q6H PRN 01/28/20 09/24/20 (Tylenol) Previous Rx's Medication Instructions Recorded naproxen 500 mg tablet,delayed 500 mg PO BID #30 tab 03/24/20 release (EC-Naprosyn) pantoprazole 40 mg tablet,delayed 40 mg PO DAILY #14 tab 08/22/20 release (Protonix) oxycodone-acetaminophen 5 mg-325 1 - 2 tab PO Q4-6H PRN #30 tab 09/09/20 mg tablet (Percocet) Allergies Allergy/AdvReac Type Severity Reaction Status Date / Time Motrin Allergy Severe swelling Uncoded 08/22/20 05:16 Review of Systems Review of Systems: Yes all other systems are reviewed and are negative PMFSH Past Medical History Medical History BPH (benign prostatic hyperplasia) Enlarged prostate Gallstones Renal calculi Sleep apnea in adult Surgical History History of laparoscopic cholecystectomy Hx of tonsillectomy S/P carpal tunnel release Social History Social History Alcohol intake: never Patient Tobacco Use Status: Never used Tobacco Use of substances other than those prescribed or required for medical reasons: No Advance Directives: No Advance Directives Information Provided: Yes Current occupational status: employed 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 Oriented X3. Looks sick Eyes: No icterus, slight pallor ENT: Pharynx normal. Oral Mucosa moist Neck: Normal inspection. Neck supple. CVS: Normal heart rate and rhythm. Pulses normal. Respiratory: No respiratory distress. Equal air entry bilateral, no wheezing/rales/rhonchi Abdomen: Soft , epigastric tenderness Bowel sounds are present, no mass palpable, no CVA tenderness gastric occult positive , stool Hemoccult positive stool black in color Skin: Skin warm and dry. Normal skin color. Normal skin turgor. Extremities: No lower extremity edema. No calf tenderness Neuro: Oriented X 3. Course Reevaluation(s) Reevaluation #1: Case with Dr. Santos supervisor metal cans advised to continue Protonix drip plan to do endoscopy in a.m. if H&H drops or patient continue to vomit. Time: 01:06 MDM - Nausea/Vomiting/Diarrhea MDM Narrative Medical decision making narrative: 01:00 Patient with upper GI bleed no history of ulcers or gastritis in the past nonalcoholic non smoker not an NSAID do not take any aspirin, Blood pressure stable at this time blood pressure 111/73 pulse rate 109 will start him on IV Protonix Will give 1 unit of PRBC because of massive amount of vomiting and diarrhea and anticipated drop in H&H Case discussed with Dr. Santos supervisor metal cans agreed with the plan Patient with slightly elevated lactic acid level secondary to volume loss not from sepsis Lab Data Attestation: I reviewed the patient's lab results. Result diagrams: 01/18/21 00:36 01/18/21 00:36 Labs: Lab Results 01/18/21 01/18/21 01/18/21 Range/Units 00:36 00:36 00:36 WBC 16.8 H (4.8-10.8) X10*3/uL RBC 4.27 L (4.60-5.80) X10*6/uL Hgb 12.4 L (14.0-18.0) g/dl Hct 37.7 L (42.0-52.0) % MCV 88.3 (80.0-98.0) fL MCH 29.0 (27.0-33.0) pg MCHC 32.9 (31.0-36.0) g/dl RDW 14.2 (11.0-16.0) % Plt Count 315 (160-400) X10*3/uL MPV 10.7 (9.4-12.4) fL Immature Gran % (Auto) 0.4 (0.0-0.4) % Neut % (Auto) 83.5 H (45-73) % Lymph % (Auto) 8.9 L (20-40) % Ponce % (Auto) 5.9 (2-11) % Eos % (Auto) 0.8 (0-4) % Baso % (Auto) 0.5 (0-2) % Lymph # (Auto) 1.5 (1.2-4.9) X10*3/uL Ponce # (Auto) 1.0 (0.1-1.2) X10*3/uL Eos # (Auto) 0.1 (0.0-0.4) X10*3/uL Baso # (Auto) 0.1 (0.0-0.2) X10*3/uL Abs Immat Gran (auto) 0.07 H (0.00-0.03) X10*3/uL Absolute Neuts (auto) 14.02 H (2.0-8.3) x10*3/uL Absolute Nucleated RBC 0.000 (0.0-0.012) X10*3/uL Nucleated RBC % (auto) 0.0 (0.0-0.2) /100WBC PT 15.0 H (9.9-13.0) SEC INR 1.3 H (0.9-1.1) APTT 29.0 (24.1-38.0) SEC Sodium 139 (135-145) mmol/L Potassium 4.5 (3.3-5.1) mmol/L Chloride 103 (96-108) mmol/L Carbon Dioxide 26 (22-29) mmol/L Anion Gap 15 (12-20) BUN 39 H D (9-16) mg/dL Creatinine 0.99 (0.5-1.4) mg/dL Estim Creat Clear Calc 96.5 Estimated GFR > 60 Random Glucose 200 H D (60-115) mg/dL Lactic Acid (0.5-2.0) mmol/L Calcium 8.9 (8.4-10.2) mg/dL Total Bilirubin 0.7 (0.0-1.0) mg/dL Direct Bilirubin 0.3 (0.0-0.5) mg/dL AST 18 (5-37) U/L ALT 20 (0-40) U/L Alkaline Phosphatase 81 (39-117) U/L Total Protein 6.7 (6.5-8.0) g/dL Albumin 4.0 (3.5-5.0) g/dL Lipase 25 (8-78) U/L Stool Occult Blood (NEGATIVE) Blood Type Crossmatch 01/18/21 01/18/21 01/18/21 Range/Units 00:36 00:49 00:55 WBC (4.8-10.8) X10*3/uL RBC (4.60-5.80) X10*6/uL Hgb (14.0-18.0) g/dl Hct (42.0-52.0) % MCV (80.0-98.0) fL MCH (27.0-33.0) pg MCHC (31.0-36.0) g/dl RDW (11.0-16.0) % Plt Count (160-400) X10*3/uL MPV (9.4-12.4) fL Immature Gran % (Auto) (0.0-0.4) % Neut % (Auto) (45-73) % Lymph % (Auto) (20-40) % Ponce % (Auto) (2-11) % Eos % (Auto) (0-4) % Baso % (Auto) (0-2) % Lymph # (Auto) (1.2-4.9) X10*3/uL Ponce # (Auto) (0.1-1.2) X10*3/uL Eos # (Auto) (0.0-0.4) X10*3/uL Baso # (Auto) (0.0-0.2) X10*3/uL Abs Immat Gran (auto) (0.00-0.03) X10*3/uL Absolute Neuts (auto) (2.0-8.3) x10*3/uL Absolute Nucleated RBC (0.0-0.012) X10*3/uL Nucleated RBC % (auto) (0.0-0.2) /100WBC PT (9.9-13.0) SEC INR (0.9-1.1) APTT (24.1-38.0) SEC Sodium (135-145) mmol/L Potassium (3.3-5.1) mmol/L Chloride (96-108) mmol/L Carbon Dioxide (22-29) mmol/L Anion Gap (12-20) BUN (9-16) mg/dL Creatinine (0.5-1.4) mg/dL Estim Creat Clear Calc Estimated GFR Random Glucose (60-115) mg/dL Lactic Acid 2.5 H* (0.5-2.0) mmol/L Calcium (8.4-10.2) mg/dL Total Bilirubin (0.0-1.0) mg/dL Direct Bilirubin (0.0-0.5) mg/dL AST (5-37) U/L ALT (0-40) U/L Alkaline Phosphatase (39-117) U/L Total Protein (6.5-8.0) g/dL Albumin (3.5-5.0) g/dL Lipase (8-78) U/L Stool Occult Blood POSITIVE (NEGATIVE) Blood Type O Positive Crossmatch See Detail ECG Data Attestation: I personally reviewed and interpreted this ECG as follows: Interpretation: Normal sinus rhythm heart rate 95 beats per minute no acute ST T wave changes no acute ischemia Critical Care Time Critical Care Time Critical Care Time: Yes Total Critical Care Time: 40 Attestation: I spent 40 minutes of critical care, with interventions, assessments, speaking to patient, consultants, and family. Discharge Plan Discharge Clinical Impression: Acute upper gastrointestinal bleeding Patient Disposition: Admitted As Inpatient
[2021-01-18] MEDS: ondansetron HCL 4 MG/2 ML VIAL IVPUSH (00:37)
[2021-01-18] MEDS: 0.9 % Sodium Chloride 1,000 ML 999 ML IVCONT (00:39)
[2021-01-18] MEDS: Pantoprazole Sodium 40 MG/10 ML VIAL 80 MG IVPUSH (00:39)
[2021-01-18 00:43] LABS: MANUAL DIFF FLAG NO
[2021-01-18 00:45] LABS: Basophils Absolute Auto 0.1 X10*3/uL (0.0-0.2); Basophils Percent Auto 0.5 % (0-2); Eosinophils Absolute Auto 0.1 X10*3/uL (0.0-0.4); Eosinophils Percent Auto 0.8 % (0-4); Hematocrit 37.7 % (42.0-52.0); Hemoglobin 12.4 g/dl (14.0-18.0); Imm Gran Abs Auto 0.07 X10*3/uL (0.00-0.03); Imm Gran Pct Auto 0.4 % (0.0-0.4); Lymphocytes Absolute Auto 1.5 X10*3/uL (1.2-4.9); Lymphocytes Percent Auto 8.9 % (20-40); Mean Corpuscular HGB Conc 32.9 g/dl (31.0-36.0); Mean Corpuscular Volume 88.3 fL (80.0-98.0); Mean Platelet Volume 10.7 fL (9.4-12.4); Monocytes Percent Auto 5.9 % (2-11); Neutrophils Absolute Auto 14.02 x10*3/uL (2.0-8.3); Neutrophils Percent Auto 83.5 % (45-73); Platelet Count 315 X10*3/uL (160-400); Red Blood Count 4.27 X10*6/uL (4.60-5.80); Red Cell Distribution Width 14.2 % (11.0-16.0); White Blood Count 16.8 X10*3/uL (4.8-10.8)
[2021-01-18] MEDS: Pantoprazole Sodium 80 MG in 0.9 % Sodium Chloride 80 ML 10 MG IV ×3 (00:48→21:43)
[2021-01-18 00:54] LABS: INTERNATIONAL NORM RATIO 1.3 (0.9-1.1)
[2021-01-18 00:58] LABS: Lactic Acid 2.5 mmol/L (0.5-2.0)
[2021-01-18 00:59] LABS: OBS1 POSITIVE (NEGATIVE)
[2021-01-18 01:00] LABS: OBS Int Ctl Valid YES
--- NOTE | 2021-01-18 01:01 | PM.IMHP ---
History of Present Illness Date of Service: 01/18/21 Chief Complaint: Coffee-ground emesis 55-year-old male with a past medical history of gallstones status post cholecystectomy, BPH, DIXON presented to the hospital with a chief complaint of nausea and vomiting. Patient reported that all day he has been feeling nauseous; in the evening artery head did not he had profuse vomiting, vomitus is coffee-ground in nature; followed by a had a huge diarrhea associated black stools. Denies any abdominal discomfort. Denies any chest pain palpitations lightheadedness or dizziness. Reports that he had not had any [id number] pain medications; denies also call or illicit drug use; denies any prior history of peptic ulcer disease. Review of all other systems is negative except mentioned above ER course: Per ER team patient's hemoglobin was noted to be 12.4; gastric contents positive for occult blood; discussed with Dr. Santos from Gastroenterology who recommended NPO for possible EGD Protonix drip, monitor H&H; [facility] Medical History BPH (benign prostatic hyperplasia) Enlarged prostate Gallstones Renal calculi Sleep apnea in adult Pertinent family history: reviewed Diabetes and hypertension runs in the family Surgical History History of laparoscopic cholecystectomy Hx of tonsillectomy S/P carpal tunnel release Social History Household Members: Spouse and Children Housing: House Do you presently have visiting nurse or other home services: No Alcohol intake: never Patient Tobacco Use Status: Never used Tobacco service: No Current occupational status: employed 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 Meds Allergies Allergy/AdvReac Type Severity Reaction Status Date / Time Motrin Allergy Severe swelling Uncoded 08/22/20 05:16 Active Medications: Current Medications Sodium Chloride (Ns) 1,000 mls @ 999 mls/hr IVCONT .Q1H1M MUMTAZ Stop: 01/18/21 01:30 Last Admin: 01/18/21 00:39 Dose: 999 mls/hr Documented by: Pantoprazole Sodium 80 mg/ (Sodium Chloride) 100 mls @ 10 mls/hr IV .Q10H MUMTAZ Last Admin: 01/18/21 00:48 Dose: 8 mg/hr, 10 mls/hr Documented by: Physical Exam Vital Signs and Narrative: Vital Signs: Last Vital Signs Temp 97.6 F 01/17/21 22:42 Pulse 109 H 01/17/21 22:42 Resp 16 01/17/21 22:42 BP 111/73 01/17/21 22:42 Pulse Ox 97 01/17/21 22:42 Body Mass Index 31.9 Gen: Appears be in no acute distress HEENT: NCAT, Moist mucosa. Pulmonary: Vesicular breath sounds, fair air entry CVS: Normal S1-S2 Abdomen: BS+, Soft, Nontender Extremities: Warm well perfused Neuro: Alert and awake. Results Labs CBC and Chem 7: 01/19/21 06:44 01/19/21 06:44 Labs: Laboratory Results - last 24 hr 01/18/21 01/18/21 01/18/21 00:36 00:36 00:49 MCV 88.3 MCH 29.0 MCHC 32.9 RDW 14.2 Plt Count 315 MPV 10.7 Immature Gran % (Auto) 0.4 Neut % (Auto) 83.5 H Lymph % (Auto) 8.9 L Moore % (Auto) 5.9 Eos % (Auto) 0.8 Baso % (Auto) 0.5 Lymph # (Auto) 1.5 Moore # (Auto) 1.0 Eos # (Auto) 0.1 Baso # (Auto) 0.1 Abs Immat Gran (auto) 0.07 H Absolute Neuts (auto) 14.02 H Absolute Nucleated RBC 0.000 Nucleated RBC % (auto) 0.0 Lactic Acid 2.5 H* Stool Occult Blood Crossmatch See Detail 01/18/21 00:55 MCV MCH MCHC RDW Plt Count MPV Immature Gran % (Auto) Neut % (Auto) Lymph % (Auto) Moore % (Auto) Eos % (Auto) Baso % (Auto) Lymph # (Auto) Moore # (Auto) Eos # (Auto) Baso # (Auto) Abs Immat Gran (auto) Absolute Neuts (auto) Absolute Nucleated RBC Nucleated RBC % (auto) Lactic Acid Stool Occult Blood POSITIVE Crossmatch Assessment and Plan (1) Acute upper gastrointestinal bleeding: Status: Acute 55-year-old male with a past medical history of BPH, gallstones status post cholecystectomy presented to the hospital with a chief complaint of nausea/vomiting/coffee-ground emesis/diarrhea/black stool; concern for upper GI bleed. Admitted for further management. Upper GI bleed: Continue Protonix drip. GI consult made aware. Serial H&H Monitor vitals Gentle IV fluids DVT prophylaxis: SCD boots Code status: Full code Off note: Things to follow up with the hospitalist once Case resumed at 7:00 a.m. on 01/18/2021-> Hemoglobin and hematocrit GI consult recommendations Vitals Quality Stroke Does the patient have a stroke diagnosis?: No VTE Prior VTE?: No VTE Risk Level:: Medical - low VTE Device Contraindication: N/A - Device Ordered VTE Drug Contraindication: Treatment Not Indicated
--- NOTE | 2021-01-18 01:06 | PC.NURSE ---
pt type and screen completed . Consent for blood completed.
[2021-01-18 01:10] LABS: Alanine Aminotransferase 20 U/L (0-40); Alkaline Phosphatase 81 U/L (39-117); Anion Gap 15 (12-20); Aspartate Amino Transferase 18 U/L (5-37); Bilirubin Direct 0.3 mg/dL (0.0-0.5); Bilirubin Total 0.7 mg/dL (0.0-1.0); Blood Urea Nitrogen 39 mg/dL (9-16); Calcium 8.9 mg/dL (8.4-10.2); Carbon Dioxide 26 mmol/L (22-29); Chloride 103 mmol/L (96-108); Creatinine Clr Calc Pharmacy 96.5; Estimated Glomerular Filt Rate > 60; Glucose Random 200 mg/dL (60-115); Lipase 25 U/L (8-78); Potassium 4.5 mmol/L (3.3-5.1); Sodium 139 mmol/L (135-145); Total Protein 6.7 g/dL (6.5-8.0)
--- NOTE | 2021-01-18 01:12 | ECG_ITS ---
Test Reason : BLEED Blood Pressure : / mmHG Vent. Rate : 095 BPM Atrial Rate : 095 BPM P-R Int : 162 ms QRS Dur : 092 ms QT Int : 346 ms P-R-T Axes : 030 -56 027 degrees QTc Int : 434 ms Normal sinus rhythm Intra-ventricular conduction delay Poor R wave progression Left anterior fascicular block Abnormal ECG no Referred By: Generic ED Physician Electronically Signed By:VIKY MARROQUIN MD
[2021-01-18 02:43] LABS: Reflex Lactate? Lactic Acid Added
[2021-01-18] MEDS: Dextrose 5 % and 0.45 % NaCl 1,000 ML 100 ML IVCONT ×3 (03:00→20:43)
[2021-01-18 03:28] LABS: Hematocrit 33.7 % (42.0-52.0); Hemoglobin 11.5 g/dl (14.0-18.0)
[2021-01-18 03:43] LABS: ~Lactic Acid-LAB USE ONLY 1.4 mmol/L (0.5-2.0)
--- NOTE | 2021-01-18 04:24 | PC.NURSE ---
Notified hospitalist of H/H blood on hold at this time.
--- NOTE | 2021-01-18 05:43 | PC.NURSE ---
pt sleeping, son at the bed side . no n/v or diarrhea.
[2021-01-18 06:20] LABS: IDNOW Serial# 9DD0AD1C
[2021-01-18 06:21] LABS: COVID-19 Test Negative (Negative)
--- NOTE | 2021-01-18 06:29 | PC.NURSE ---
pt sleeping at time.
[2021-01-18 06:47] LABS: MANUAL DIFF FLAG NO
[2021-01-18 06:50] LABS: Basophils Percent Auto 0.4 % (0-2); Eosinophils Absolute Auto 0.1 X10*3/uL (0.0-0.4); Eosinophils Percent Auto 0.5 % (0-4); Hematocrit 32.8 % (42.0-52.0); Imm Gran Abs Auto 0.05 X10*3/uL (0.00-0.03); Imm Gran Pct Auto 0.5 % (0.0-0.4); Lymphocytes Absolute Auto 1.3 X10*3/uL (1.2-4.9); Lymphocytes Percent Auto 11.6 % (20-40); Mean Corpuscular HGB Conc 33.5 g/dl (31.0-36.0); Mean Corpuscular Hemoglobin 29.6 pg (27.0-33.0); Mean Corpuscular Volume 88.2 fL (80.0-98.0); Mean Platelet Volume 11.1 fL (9.4-12.4); Monocytes Absolute Auto 0.7 X10*3/uL (0.1-1.2); Monocytes Percent Auto 6.2 % (2-11); Neutrophils Absolute Auto 8.81 x10*3/uL (2.0-8.3); Neutrophils Percent Auto 80.8 % (45-73); Platelet Count 258 X10*3/uL (160-400); Red Blood Count 3.72 X10*6/uL (4.60-5.80); Red Cell Distribution Width 14.4 % (11.0-16.0); White Blood Count 10.9 X10*3/uL (4.8-10.8)
[2021-01-18 07:18] LABS: Anion Gap 12 (12-20); Blood Urea Nitrogen 30 mg/dL (9-16); Calcium 7.9 mg/dL (8.4-10.2); Carbon Dioxide 21 mmol/L (22-29); Chloride 109 mmol/L (96-108); Creatinine Clr Calc Pharmacy 127.5; Estimated Glomerular Filt Rate > 60; Glucose Random 164 mg/dL (60-115); Potassium 4.8 mmol/L (3.3-5.1); Sodium 137 mmol/L (135-145)
[2021-01-18] MEDS: Phytonadione (Vit K1) 5 MG in 0.9 % Sodium Chloride 50 ML 50.5 MG IV (10:57)
[2021-01-18 12:34] LABS: MANUAL DIFF FLAG NO
[2021-01-18 12:36] LABS: Basophils Absolute Auto 0.1 X10*3/uL (0.0-0.2); Basophils Percent Auto 0.6 % (0-2); Eosinophils Absolute Auto 0.3 X10*3/uL (0.0-0.4); Eosinophils Percent Auto 2.7 % (0-4); Hematocrit 33.4 % (42.0-52.0); Hemoglobin 10.8 g/dl (14.0-18.0); Imm Gran Abs Auto 0.02 X10*3/uL (0.00-0.03); Imm Gran Pct Auto 0.2 % (0.0-0.4); Lymphocytes Absolute Auto 1.9 X10*3/uL (1.2-4.9); Lymphocytes Percent Auto 20.2 % (20-40); Mean Corpuscular HGB Conc 32.3 g/dl (31.0-36.0); Mean Corpuscular Hemoglobin 29.2 pg (27.0-33.0); Mean Corpuscular Volume 90.3 fL (80.0-98.0); Mean Platelet Volume 10.9 fL (9.4-12.4); Monocytes Absolute Auto 0.9 X10*3/uL (0.1-1.2); Monocytes Percent Auto 9.6 % (2-11); Neutrophils Percent Auto 66.7 % (45-73); Platelet Count 257 X10*3/uL (160-400); Red Cell Distribution Width 14.4 % (11.0-16.0); White Blood Count 9.6 X10*3/uL (4.8-10.8)
[2021-01-18 12:53] LABS: Anion Gap 10 (12-20); Blood Urea Nitrogen 24 mg/dL (9-16); Calcium 7.8 mg/dL (8.4-10.2); Carbon Dioxide 24 mmol/L (22-29); Chloride 109 mmol/L (96-108); Creatinine Clr Calc Pharmacy 130.9; Estimated Glomerular Filt Rate > 60; Glucose Fasting 92 mg/dL (60-99); Potassium 4.1 mmol/L (3.3-5.1); Sodium 139 mmol/L (135-145)
--- NOTE | 2021-01-18 14:30 | MHC.SHP ---
Pre-Procedural Eval Section A Date of Service: 01/18/21 The patient is an INPATIENT: Yes The History & Physical has been completed within 30 days and I have reviewed it.: Yes Section B Chief Complaint: Gi Bleed Allergies: Allergies Allergy/AdvReac Type Severity Reaction Status Date / Time Motrin Allergy Severe swelling Uncoded 08/22/20 05:16 Plan I have reviewed the history and physical and performed a pertinent physical examination on my patient. No changes have occurred unless specified.
--- NOTE | 2021-01-18 14:30 | PM.EVENT ---
Event Note Date of Service: 01/18/21 Event Note: GI Consult-Full note dictated. Hx via patient, , and EMR. Imp: UGI Bleed with associated coffee grounds emesis, melena, and drop in Hgb. Diff dx: PUD, Delilah-Santos tear, esophagitis. Rec: EGD with MAC today. Full consent has been obtained from him for this, including risks of bleeding and perforation. Continue IV PPI. Follow Hgb. D/W patient and in detail. They are comforatble with this plan. Thanks.
--- NOTE | 2021-01-18 15:11 | P.CONAN_ITS ---
HPI - Anesthesia Eval Consult details Narrative: GI bleeding PMFSH Active Problems Active Problems: All Active Problems (Updated 01/18/21 @ 01:09 by Augustine Cruz MD) Acute upper gastrointestinal bleeding (Acute) Gallstones (Acute) Past Medical History Medical History BPH (benign prostatic hyperplasia) Enlarged prostate Gallstones Renal calculi Sleep apnea in adult Family History Family history of problems with anesthesia: No Surgical History Surgical History History of laparoscopic cholecystectomy Hx of tonsillectomy S/P carpal tunnel release History of Problems with Anesthesia: No Social History Social History Alcohol intake: never Patient Tobacco Use Status: Never used Tobacco Use of substances other than those prescribed or required for medical reasons: No Advance Directives: No Advance Directives Information Provided: Yes Current occupational status: employed 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 Meds Allergies Allergy/AdvReac Type Severity Reaction Status Date / Time Motrin Allergy Severe swelling Uncoded 08/22/20 05:16 Active Medications: Current Medications Pantoprazole Sodium 80 mg/ (Sodium Chloride) 100 mls @ 10 mls/hr IV .Q10H [facility] Last Admin: 01/18/21 10:51 Dose: 8 mg/hr, 10 mls/hr Documented by: Dextrose/Sodium Chloride (D51/2ns) 1,000 mls @ 100 mls/hr IVCONT .Q10H [facility] Last Admin: 01/18/21 11:00 Dose: 100 mls/hr Documented by: Pantoprazole Sodium 80 mg/ (Sodium Chloride) 120 mls @ 12 mls/hr IV .Q10H [facility] Stop: 01/21/21 01:09 Last Admin: 01/18/21 11:03 Dose: Not Given Documented by: Melatonin (Melatonin 3 Mg Tablet) 6 mg PO BEDTIME PRN PRN Reason: Insomnia Ondansetron HCl (Ondansetron Hcl 4 Mg/2 Ml Vial) 4 mg IVPUSH Q8H PRN PRN Reason: Nausea and Vomiting Sodium Chloride (0.9 % Sodium Chloride Flush 3 Ml Syringe) 3 ml IVFLUSH QSHIFT [facility] Last Admin: 01/18/21 07:10 Dose: Not Given Documented by: Home Medications Medication Instructions Recorded Confirmed Last Taken Type No Known Home Meds 01/18/21 01/18/21 Unknown History Exam Exam Date and Time: January 18, 2021 1511 Height,Weight and Vital Signs: Height 5 ft 8 in Weight 95.254 kg Last Vital Signs Temp 98.5 F 01/18/21 05:15 Pulse 79 01/18/21 15:10 Resp 14 01/18/21 15:10 BP 111/75 01/18/21 15:10 Pulse Ox 98 01/18/21 15:10 Pertinent Lab Results Pertinent Lab Results: Laboratory Tests 01/18/21 01/18/21 01/18/21 00:36 00:36 00:36 WBC 16.8 H RBC 4.27 L Hgb 12.4 L Hct 37.7 L MCV 88.3 MCH 29.0 MCHC 32.9 RDW 14.2 Plt Count 315 MPV 10.7 Immature Gran % (Auto) 0.4 Neut % (Auto) 83.5 H Lymph % (Auto) 8.9 L [place] % (Auto) 5.9 Eos % (Auto) 0.8 Baso % (Auto) 0.5 Lymph # (Auto) 1.5 [place] # (Auto) 1.0 Eos # (Auto) 0.1 Baso # (Auto) 0.1 Abs Immat Gran (auto) 0.07 H Absolute Neuts (auto) 14.02 H Absolute Nucleated RBC 0.000 Nucleated RBC % (auto) 0.0 PT 15.0 H INR 1.3 H APTT 29.0 Sodium 139 Potassium 4.5 Chloride 103 Carbon Dioxide 26 Anion Gap 15 BUN 39 H D Creatinine 0.99 Estim Creat Clear Calc 96.5 Estimated GFR > 60 Random Glucose 200 H D Fasting Glucose Lactic Acid Lactic Acid Fup @ 2Hr Calcium 8.9 Total Bilirubin 0.7 Direct Bilirubin 0.3 AST 18 ALT 20 Alkaline Phosphatase 81 Total Protein 6.7 Albumin 4.0 Lipase 25 Stool Occult Blood COVID-19 ([facility]) COVID-19 Clin Com Blood Type Antibody Screen Crossmatch 01/18/21 01/18/21 01/18/21 00:36 00:49 00:55 WBC RBC Hgb Hct MCV MCH MCHC RDW Plt Count MPV Immature Gran % (Auto) Neut % (Auto) Lymph % (Auto) [place] % (Auto) Eos % (Auto) Baso % (Auto) Lymph # (Auto) [place] # (Auto) Eos # (Auto) Baso # (Auto) Abs Immat Gran (auto) Absolute Neuts (auto) Absolute Nucleated RBC Nucleated RBC % (auto) PT INR APTT Sodium Potassium Chloride Carbon Dioxide Anion Gap BUN Creatinine Estim Creat Clear Calc Estimated GFR Random Glucose Fasting Glucose Lactic Acid 2.5 H* Lactic Acid Fup @ 2Hr Calcium Total Bilirubin Direct Bilirubin AST ALT Alkaline Phosphatase Total Protein Albumin Lipase Stool Occult Blood POSITIVE COVID-19 ([facility]) COVID-19 Clin Com Blood Type O Positive Antibody Screen NEGATIVE Crossmatch See Detail 01/18/21 01/18/21 01/18/21 03:15 03:15 05:52 WBC RBC Hgb 11.5 L Hct 33.7 L MCV MCH MCHC RDW Plt Count MPV Immature Gran % (Auto) Neut % (Auto) Lymph % (Auto) [place] % (Auto) Eos % (Auto) Baso % (Auto) Lymph # (Auto) [place] # (Auto) Eos # (Auto) Baso # (Auto) Abs Immat Gran (auto) Absolute Neuts (auto) Absolute Nucleated RBC Nucleated RBC % (auto) PT INR APTT Sodium Potassium Chloride Carbon Dioxide Anion Gap BUN Creatinine Estim Creat Clear Calc Estimated GFR Random Glucose Fasting Glucose Lactic Acid Lactic Acid Fup @ 2Hr 1.4 Calcium Total Bilirubin Direct Bilirubin AST ALT Alkaline Phosphatase Total Protein Albumin Lipase Stool Occult Blood COVID-19 ([facility]) Negative COVID-POPRAGEOUS See Note Blood Type Antibody Screen Crossmatch 01/18/21 01/18/21 01/18/21 06:12 06:12 12:30 WBC 10.9 H 9.6 RBC 3.72 L 3.70 L Hgb 11.0 L 10.8 L Hct 32.8 L 33.4 L MCV 88.2 90.3 MCH 29.6 29.2 MCHC 33.5 32.3 RDW 14.4 14.4 Plt Count 258 257 MPV 11.1 10.9 Immature Gran % (Auto) 0.5 H 0.2 Neut % (Auto) 80.8 H 66.7 Lymph % (Auto) 11.6 L 20.2 [place] % (Auto) 6.2 9.6 Eos % (Auto) 0.5 2.7 Baso % (Auto) 0.4 0.6 Lymph # (Auto) 1.3 1.9 [place] # (Auto) 0.7 0.9 Eos # (Auto) 0.1 0.3 Baso # (Auto) 0.0 0.1 Abs Immat Gran (auto) 0.05 H 0.02 Absolute Neuts (auto) 8.81 H 6.40 Absolute Nucleated RBC 0.000 0.000 Nucleated RBC % (auto) 0.0 0.0 PT INR APTT Sodium 137 Potassium 4.8 Chloride 109 H Carbon Dioxide 21 L Anion Gap 12 BUN 30 H Creatinine 0.75 Estim Creat Clear Calc 127.5 Estimated GFR > 60 Random Glucose 164 H Fasting Glucose Lactic Acid Lactic Acid Fup @ 2Hr Calcium 7.9 L D Total Bilirubin Direct Bilirubin AST ALT Alkaline Phosphatase Total Protein Albumin Lipase Stool Occult Blood COVID-19 ([facility]) [employer] Blood Type Antibody Screen Crossmatch 01/18/21 12:30 WBC RBC Hgb Hct MCV MCH MCHC RDW Plt Count MPV Immature Gran % (Auto) Neut % (Auto) Lymph % (Auto) [place] % (Auto) Eos % (Auto) Baso % (Auto) Lymph # (Auto) [place] # (Auto) Eos # (Auto) Baso # (Auto) Abs Immat Gran (auto) Absolute Neuts (auto) Absolute Nucleated RBC Nucleated RBC % (auto) PT INR APTT Sodium 139 Potassium 4.1 Chloride 109 H Carbon Dioxide 24 Anion Gap 10 L BUN 24 H Creatinine 0.73 Estim Creat Clear Calc 130.9 Estimated GFR > 60 Random Glucose Fasting Glucose 92 Lactic Acid Lactic Acid Fup @ 2Hr Calcium 7.8 L Total Bilirubin Direct Bilirubin AST ALT Alkaline Phosphatase Total Protein Albumin Lipase Stool Occult Blood COVID-19 ([facility]) COVID-19 [employer] Blood Type Antibody Screen Crossmatch Airway Mallampati Class: II TM Dist: >3cm Neck ROM: Full Loose/Missing/Broken Teeth: No Heart: RRR Lungs: CTA Assessment and Plan Assessment Anesthesia Assessment: Anesthesia Plan Discussed and Chart Reviewed Final Anesthetic Review Family History of Problems with Anesthesia: No History of Problems with Anesthesia: No NPO: Yes ASA Class: II and Emergency Final Preanesthetic Review: No Changes in Pt Med Stat, Meds/Allgs Chart Reviewed, Consent Obtained/Reviewed and Anes Risks/Benef Reviewed Patient Risk: Low Procedure Risk: Low Anesthetic Plan Anesthetic Plan: MAC: Disposition: Standard PACU
--- NOTE | 2021-01-18 15:39 | MHC.CM.PN ---
CM ATTEMPTED TO SEE PT. PT SLEEPING CM TO RETURN
--- NOTE | 2021-01-18 16:12 | PM.OP ---
Brief Operative Note Date of Service: 01/18/21 Pre-op diagnosis: UGI Bleed Post-op diagnosis: other (Gastric ulcer, Gastritis, Hiatal hernia and GERD, Duodenitis and ? of Duodenal polyp) Procedure: EGD with biopsies Surgeon: Hemanth Santos Anesthesia: MAC Was an Oil Spraying Machine Operator used for this Procedure?: No Estimated blood loss (mL): 3.0 Pathology: other (A. ? of Duodenal polyp B. Gastric antrum C. Gastric ulcer D. EG Junction at 36cm) Condition: stable Disposition: PACU
--- NOTE | 2021-01-18 16:15 | PM.EVENT ---
Event Note Date of Service: 01/18/21 Event Note: EGD with biopsies-Full note dictated 1. Gastric antral ulcer along anterior wall with a clean base and surrounding edema/inflammation. No bleeding nor visible vessel.Grossly benign. Biopsies taken. 2. Erosive antral gastritis, biopsied x 3 3. Irregular EG Junction at 36cm-biopsies taken. No esophagitis 4. Hiatal hernia 5. Duodenitis and ? of duodenal polyp in 2nd portion-biopsies taken Rec: Continue IV PPI overnight. F/U Hgb. Start clear liquids today. If stable in AM, 11/, his diet can be advanced, can change him to omeprazole 40mg daily, and plan for discharge. I will F/U path, treat H.pylori if needed, and plan for repeat EGD in 4-6 weeks. D/W patient and . Thanks
--- NOTE | 2021-01-18 17:37 | CONS_ITS ---
DATE OF SERVICE: 01/18/2021 REASON FOR CONSULTATION: Upper GI bleeding. HISTORY OF PRESENT ILLNESS: This has been obtained from the patient, his , and the medical record. The patient is a 55-year-old healthy male who was in his usual state of health until the day or so before admission. He developed the onset of some vomiting, which became increasing in nature with associated coffee-ground emesis by his description, as well as subsequent melena. He does describe about a week of some intermittent mild GI complaints of some occasional anorexia and nausea, for which he tried some Zantac and Prilosec ayzk-cin-xnhqyly, but without any relief. However in general, he was not having any abdominal pain, significant heartburn, no dysphagia. He does not use any significant amounts of aspirin, NSAIDs, nor any alcohol. He does not smoke. He denies a previous history of ulcer disease nor GI bleeding. Over the course of yesterday, he began having a lot of coffee-ground emesis and melena, which prompted his visit to the ER. He had some more of that when he 1st got here, but has not had any sign of vomiting or further melena over the past 12 hours. He presently denies any abdominal pain. MEDICATIONS: At home none other than the recent use of some [id number]-lxkporz Zantac, Prilosec, as well as Pepto-Bismol. Of note, the black vomitus and black stool began prior to the Pepto-Bismol. CURRENT MEDICATIONS: Include IV Protonix and Zofran p.r.n. PAST MEDICAL HISTORY: He underwent a laparoscopic cholecystectomy this past August with Dr. Mcduffie. Carpal tunnel surgery. He underwent a colonoscopy with ut in 2019 with removal of a serrated polyp, but no other significant findings. He denies a history of heart disease, diabetes, stroke, lung disease, nor kidney disease. He has also had a prostate surgery. 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 He is . He does not smoke nor use any alcohol. FAMILY HISTORY: His mother had colon cancer. There is no family history of ulcer disease. REVIEW OF SYSTEMS: CONSTITUTIONAL: In general, he had been feeling well with good energy and good appetite. SKIN: No rash. No pruritus. CARDIAC: No chest pain. PULMONARY: No cough. No hemoptysis. GI: As above. URINARY: No dysuria. No hematuria. NEUROLOGIC: No headache or seizures. PHYSICAL EXAMINATION: GENERAL: The patient is a pleasant, alert, comfortable-appearing male. VITAL SIGNS: Have been stable. SKIN: Warm and dry. Anicteric sclerae. CHEST: Clear. CARDIAC: Normal S1 and S2. ABDOMEN: Soft, nondistended, nontender without organomegaly or mass. EXTREMITIES: Without edema. LABORATORY DATA: His initial hemoglobin was 12.4. He had a hemoglobin of 11.9 back in August. Followup hemoglobins here in the hospital have been hemoglobin of 11.5, 11.0 and 10.8. Platelet count 257,000. PT 15.0 with INR 1.3. Normal electrolytes. Initial BUN was 30 and repeat was 24. Creatinine 0.7. He had a normal lipid profile with an albumin 4.0 and a lipase of 25. Stool Hemoccult was positive. COVID was negative. IMPRESSION: Given the patient's presentation, this certainly speaks for an upper GI bleed. He presently appears stable. The differential diagnosis would include that of peptic ulcer disease, Delilah-Santos tear, significant esophagitis, and/or significant gastritis. At the present time, he appears stable. He will undergo upper endoscopy later today for further evaluation. Full consent has been obtained for that, including risks of bleeding and perforation. In the meantime, I would recommend continuing his IV Protonix infusion and following his hemoglobin closely. This has been discussed with the patient and his in detail. They are comfortable with the plan. Thank you for the consultation. MD ROJAS Hoang/CLIFFORD / [id number]
--- NOTE | 2021-01-18 19:02 | OP_ITS ---
SURGEON: Hemanth Santos MD INDICATIONS: The patient presents for evaluation of upper GI bleeding. Full consent has been obtained from him for this, including risks of bleeding and perforation. PREOPERATIVE DIAGNOSIS: Upper gastrointestinal bleeding. POSTOPERATIVE DIAGNOSIS: PROCEDURE PERFORMED: Esophagogastroduodenoscopy with biopsies. ESTIMATED BLOOD LOSS: COMPLICATIONS: ANESTHESIA: Monitored anesthesia care. ASSISTANTS: SPECIMENS: POSTOPERATIVE DIAGNOSES: Upper gastrointestinal bleeding, gastric ulcer, erosive gastritis, duodenitis, and question of duodenal polyp, hiatal hernia with gastroesophageal reflux. DESCRIPTION OF PROCEDURE: The patient was placed in the left lateral decubitus position. The Olympus video gastroscope was passed in the posterior oropharynx and upper esophagus under direct vision. The scope was passed slowly into the distal esophagus. The gastroesophageal junction appeared at 36 cm. There was some slight irregularity consistent with chronic reflux, but no evidence of esophagitis nor any definitive evidence of Contreras's mucosa. The scope entered into the stomach. There was a small hiatal hernia. The scope was advanced to pylorus and the duodenum was cannulated the descending portion. The duodenal bulb was notable for some duodenitis and edema. There was no ulceration nor mass in the duodenal bulb. At the proximal portion of the second portion of the duodenum, was what appeared to be an area of possible polypoid tissue, although this could have also represented some edema. Biopsies were obtained. It was not particularly ulcerated and there was no bleeding. I was able to visualize the major papilla with the gastroscope more distally. The scope was withdrawn back into the stomach. Along the anterior wall in the pre-pyloric antrum, was a clean based ulcer with surrounding edema and inflammation. The ulcer base was approximately 12 x 5 mm in diameter. The base was clean without any visible vessel nor bleeding. I did obtain biopsies from the margins of the ulcer. There was also erosive gastritis within the gastric antrum and biopsies were obtained as well. There was good peristalsis. The scope was retroflexed visualizing the proximal stomach carefully, which appeared normal, without any sign of mass or ulceration. Scope was straightened. The scope was withdrawn back into the esophagus. Biopsies were obtained at the EG junction at 36 cm. Proximal to this, esophageal mucosa appeared normal. The scope was withdrawn from the patient. He tolerated the procedure well and was returned to recovery area in stable condition. IMPRESSION: 1. Gastric antral ulcer. 2. Erosive gastritis. 3. Duodenitis, question of duodenal polyp. 4. Hiatal hernia with gastroesophageal reflux. PLAN: The results of biopsies will be checked. At this point, he will stay on his IV PPI overnight and if stable, he can be changed to omeprazole 40 mg daily beginning tomorrow. He will start clear liquids today and his diet can be advanced tomorrow as well if stable. If stable, he can be discharged tomorrow and I will follow him up in the office. If Helicobacter pylori is present in the gastric biopsies, this will be treated. I would plan for repeat upper endoscopy in the next 4 to 6 weeks as well. If the biopsies from the duodenal area are consistent with a polypoid lesion, this will need to be reassessed as well and decided how best to remove it. He will need to avoid all aspirin and NSAIDs going forward. This has been discussed with his . MD ROJAS Hoang/CLIFFORD / [phone]
[2021-01-18 19:38] LABS: MANUAL DIFF FLAG NO
[2021-01-18 19:39] LABS: Basophils Absolute Auto 0.1 X10*3/uL (0.0-0.2); Basophils Percent Auto 0.7 % (0-2); Eosinophils Absolute Auto 0.4 X10*3/uL (0.0-0.4); Eosinophils Percent Auto 4.4 % (0-4); Imm Gran Abs Auto 0.02 X10*3/uL (0.00-0.03); Imm Gran Pct Auto 0.2 % (0.0-0.4); Lymphocytes Absolute Auto 2.4 X10*3/uL (1.2-4.9); Lymphocytes Percent Auto 26.2 % (20-40); Mean Corpuscular HGB Conc 33.3 g/dl (31.0-36.0); Mean Corpuscular Hemoglobin 29.8 pg (27.0-33.0); Mean Corpuscular Volume 89.4 fL (80.0-98.0); Mean Platelet Volume 10.7 fL (9.4-12.4); Monocytes Absolute Auto 0.6 X10*3/uL (0.1-1.2); Monocytes Percent Auto 6.4 % (2-11); Neutrophils Absolute Auto 5.57 x10*3/uL (2.0-8.3); Neutrophils Percent Auto 62.1 % (45-73); Platelet Count 251 X10*3/uL (160-400); Red Blood Count 3.69 X10*6/uL (4.60-5.80); Red Cell Distribution Width 14.6 % (11.0-16.0)
[2021-01-19 04:00] VITALS: BP 112/72; PULSE 70; RESP 18; TEMP 36.9; O2SAT 96
[2021-01-19] MEDS: Dextrose 5 % and 0.45 % NaCl 1,000 ML 100 ML IVCONT (05:48)
[2021-01-19 07:18] LABS: MANUAL DIFF FLAG NO
[2021-01-19 07:25] LABS: Basophils Absolute Auto 0.1 X10*3/uL (0.0-0.2); Basophils Percent Auto 1.3 % (0-2); Eosinophils Absolute Auto 0.5 X10*3/uL (0.0-0.4); Eosinophils Percent Auto 7.3 % (0-4); Hematocrit 31.3 % (42.0-52.0); Hemoglobin 10.2 g/dl (14.0-18.0); Imm Gran Abs Auto 0.03 X10*3/uL (0.00-0.03); Imm Gran Pct Auto 0.4 % (0.0-0.4); Lymphocytes Absolute Auto 1.7 X10*3/uL (1.2-4.9); Lymphocytes Percent Auto 24.4 % (20-40); Mean Corpuscular HGB Conc 32.6 g/dl (31.0-36.0); Mean Corpuscular Hemoglobin 29.3 pg (27.0-33.0); Mean Corpuscular Volume 89.9 fL (80.0-98.0); Mean Platelet Volume 10.9 fL (9.4-12.4); Monocytes Absolute Auto 0.6 X10*3/uL (0.1-1.2); Neutrophils Absolute Auto 4.16 x10*3/uL (2.0-8.3); Neutrophils Percent Auto 58.6 % (45-73); Platelet Count 246 X10*3/uL (160-400); Red Blood Count 3.48 X10*6/uL (4.60-5.80); Red Cell Distribution Width 14.6 % (11.0-16.0); White Blood Count 7.1 X10*3/uL (4.8-10.8)
[2021-01-19 07:33] VITALS: BP 113/68; PULSE 67; RESP 18; TEMP 36.4; O2SAT 96
[2021-01-19 07:50] LABS: Anion Gap 9 (12-20); Blood Urea Nitrogen 12 mg/dL (9-16); Calcium 8.1 mg/dL (8.4-10.2); Carbon Dioxide 26 mmol/L (22-29); Chloride 108 mmol/L (96-108); Creatinine Clr Calc Pharmacy 124.1; Estimated Glomerular Filt Rate > 60; Glucose Fasting 104 mg/dL (60-99); Potassium 4.9 mmol/L (3.3-5.1); Sodium 138 mmol/L (135-145)
[2021-01-19] MEDS: 0.9 % Sodium Chloride Flush 3 ML SYRINGE IVFLUSH (08:11)
--- NOTE | 2021-01-19 08:28 | MHC.CM.PN ---
pt lives at home c his . he reports that he is independent in his care. 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 if pt needs help then his is able to help him. this will include a ride home at dc. pt denies the need for vna at dc. dc plan is home no svcs. cm to cont. to follow.
[2021-01-19 11:39] VITALS: BP 118/69; PULSE 81; RESP 20; TEMP 37.1; O2SAT 96
--- NOTE | 2021-01-19 11:47 | P.DS_ITS ---
DS: Providers Provider Date of Service: 01/19/21 Date of admission: 01/18/21 02:53 Primary care physician: Daryl Carrillo MD Consults: 01/18/21 01:09 Consult to Gastroenterology Routine Consulting Provider: Hemanth Santos Reason for consultation: GI bleed DS: Diagnosis Discharge Diagnosis (1) Acute upper gastrointestinal bleeding: Status: Acute DS: Summary Hospital Course Hospital Course: For acute blood loss anemia due to upper GI bleed. He was given IV Protonix and hemoglobin was monitor. Admission was 12.4, is 10.2 at discharge, he has had no further bleeding and did not require transfusion. He underwent EGD which showed gastric antral ulcer along anterior wall with clean base, biopsies were taken, erosive antral gastritis, irregular EG junction, hiatal hernia, duodenitis and questionable duodenal polyp. Patient is feeling much better only transition to oral omeprazole 40 mg daily, he will follow-up with Gastroenterology for biopsy results and repeat EGD in 4-6 weeks. Time Spent with Patient Time attestation: Total time spent providing and/or coordinating discharge services: Discharge coordination time: Greater than 30 minutes Quality: Stroke Does the patient have a stroke diagnosis?: No Physical Exam Vital Signs: Vital Signs: Last Vital Signs Temp 98.8 F 01/19/21 11:39 Pulse 81 01/19/21 11:39 Resp 20 01/19/21 11:39 BP 118/69 01/19/21 11:39 Pulse Ox 96 01/19/21 11:39 Body Mass Index 31.9 DS: Data Data Completed and Pending Pending studies at discharge: Pending at discharge 01/18/21 15:53 Surgical [PTH] Routine Labs on day of discharge: Laboratory Results - last 24 hr 01/18/21 01/18/21 01/18/21 00:49 12:30 12:30 WBC 9.6 RBC 3.70 L Hgb 10.8 L Hct 33.4 L MCV 90.3 MCH 29.2 MCHC 32.3 RDW 14.4 Plt Count 257 MPV 10.9 Immature Gran % (Auto) 0.2 Neut % (Auto) 66.7 Lymph % (Auto) 20.2 [place] % (Auto) 9.6 Eos % (Auto) 2.7 Baso % (Auto) 0.6 Lymph # (Auto) 1.9 [place] # (Auto) 0.9 Eos # (Auto) 0.3 Baso # (Auto) 0.1 Abs Immat Gran (auto) 0.02 Absolute Neuts (auto) 6.40 Absolute Nucleated RBC 0.000 Nucleated RBC % (auto) 0.0 Sodium 139 Potassium 4.1 Chloride 109 H Carbon Dioxide 24 Anion Gap 10 L BUN 24 H Creatinine 0.73 Estim Creat Clear Calc 130.9 Estimated GFR > 60 Fasting Glucose 92 Calcium 7.8 L Crossmatch See Detail 01/18/21 01/19/21 01/19/21 19:30 06:44 06:44 WBC 9.0 7.1 RBC 3.69 L 3.48 L Hgb 11.0 L 10.2 L Hct 33.0 L 31.3 L MCV 89.4 89.9 MCH 29.8 29.3 MCHC 33.3 32.6 RDW 14.6 14.6 Plt Count 251 246 MPV 10.7 10.9 Immature Gran % (Auto) 0.2 0.4 Neut % (Auto) 62.1 58.6 Lymph % (Auto) 26.2 24.4 [place] % (Auto) 6.4 8.0 Eos % (Auto) 4.4 H 7.3 H Baso % (Auto) 0.7 1.3 Lymph # (Auto) 2.4 1.7 [place] # (Auto) 0.6 0.6 Eos # (Auto) 0.4 0.5 H Baso # (Auto) 0.1 0.1 Abs Immat Gran (auto) 0.02 0.03 Absolute Neuts (auto) 5.57 4.16 Absolute Nucleated RBC 0.000 0.000 Nucleated RBC % (auto) 0.0 0.0 Sodium 138 Potassium 4.9 Chloride 108 Carbon Dioxide 26 Anion Gap 9 L BUN 12 Creatinine 0.77 Estim Creat Clear Calc 124.1 Estimated GFR > 60 Fasting Glucose 104 H Calcium 8.1 L Crossmatch Discharge Plan Discharge Patient Disposition: Home, Self-Care Discharge Diagnosis: ulcer Referrals: Daryl Carrillo MD [Primary Care Provider] - 1 Week Hemanth Santos [Physician] - 1 Week Discharge Medications: New omeprazole 40 mg Capsule,Delayed Release(Dr/Ec) 40 mg PO DAILY Qty: 30 RF: 0 Discharge Orders: Discharge Order (Routine); Ordered 01/19/21 Ordered By: Bran Resendiz Diet: advance to usual diet Activity on Discharge: As tolerated Stand Alone Forms: Patient Portal Discharge page Care Plan Goals: Avoid further bleeding, heal ulcer Health Concerns: Gastric ulcer Plan of Treatment: Start omeprazole 40 mg daily, follow-up with Gastroenterology, avoid all NSAIDs Assessment: see above
--- NOTE | 2021-01-19 14:05 | HO.POSTANES ---
Post Anesthesia Evaluation Post Anesthesia Evaluation Vital Signs: Vital Signs Temp Pulse Resp BP Pulse Ox 01/19/21 11:39 98.8 F 81 20 118/69 96 01/19/21 07:33 97.6 F 67 18 113/68 96 01/19/21 04:00 98.4 F 70 18 112/72 96 Anesthesia: Monitored Mental Status: Awake Pain Control: Satisfactory Nausea/Vomiting: None Hydration: Adequate Anesthesia-Related Issues: No Anes. Related Issues
== END 2021-01-19 13:42 | disposition home or self-care (01) | DRG 241 ==
LOC: HO.ED 01-18 01:09 → HO.EDOVER 01-18 02:54 → HO.IMC 01-18 16:43
PROVIDERS: Internal Medicine; Admitting Provider Hospitalist; Emergency Provider Internal Medicine; PCP Internal Medicine; Visit Provider Internal Medicine
PROC: 0DJ08ZZ Inspection of Upper Intestinal Tract, Via Natural or Artificial Opening Endoscopic (ICD-10-PCS; CPT 43235; principal; 2021-01-18 15:00)
DX: K29.81 Duodenitis with bleeding (principal); D62 Acute posthemorrhagic anemia; G47.33 Obstructive sleep apnea (adult) (pediatric); K25.4 Chronic or unspecified gastric ulcer with hemorrhage; N40.0 Benign prostatic hyperplasia without lower urinary tract symptoms; K29.71 Gastritis, unspecified, with bleeding; K44.9 Diaphragmatic hernia without obstruction or gangrene; K21.9 Gastro-esophageal reflux disease without esophagitis; K31.7 Polyp of stomach and duodenum; Z20.822 Contact with and (suspected) exposure to COVID-19; Z88.6 Allergy status to analgesic agent; Z79.899 Other long term (current) drug therapy
CPT/HCPCS: 43239; 36415; 80048; 80076; 82272; 83605; 83690; 85014; 85018; 85025; 85610; 85730; 86850; 86900; 86901; 86923; 87635; 88305; 88342; 93005; 96361; 96374; 96375; 99219; 99285; 99291; J2405; J3010; J3430

== ENCOUNTER 2021-01-20 11:24 | Outpatient (REF) | payer OTHER, SELFPAY | END 2021-01-20 11:25 | disposition home or self-care (01) | LOC: HO.LAB 11:24 | PROVIDERS: Visit Provider Internal Medicine | DX: Z20.822 Contact with and (suspected) exposure to COVID-19 (principal) | CPT/HCPCS: C9803; U0003; U0005 ==

== ENCOUNTER 2021-02-02 07:06 | Outpatient (REF) | payer OTHER, SELFPAY ==
[2021-02-02 07:32] LABS: MANUAL DIFF FLAG NO
[2021-02-02 08:06] LABS: Basophils Absolute Auto 0.1 X10*3/uL (0.0-0.2); Basophils Percent Auto 1.4 % (0-2); Eosinophils Absolute Auto 0.5 X10*3/uL (0.0-0.4); Eosinophils Percent Auto 7.6 % (0-4); Hematocrit 34.2 % (42.0-52.0); Hemoglobin 11.1 g/dl (14.0-18.0); Imm Gran Abs Auto 0.03 X10*3/uL (0.00-0.03); Imm Gran Pct Auto 0.4 % (0.0-0.4); Lymphocytes Absolute Auto 1.4 X10*3/uL (1.2-4.9); Lymphocytes Percent Auto 19.9 % (20-40); Mean Corpuscular HGB Conc 32.5 g/dl (31.0-36.0); Mean Corpuscular Hemoglobin 28.2 pg (27.0-33.0); Mean Corpuscular Volume 86.8 fL (80.0-98.0); Monocytes Absolute Auto 0.6 X10*3/uL (0.1-1.2); Neutrophils Absolute Auto 4.4 x10*3/uL (2.0-8.3); Neutrophils Percent Auto 61.7 % (45-73); Platelet Count 385 X10*3/uL (160-400); Red Blood Count 3.94 X10*6/uL (4.60-5.80); Red Cell Distribution Width 13.6 % (11.0-16.0); White Blood Count 7.1 X10*3/uL (4.8-10.8)
[2021-02-02 08:28] LABS: Anion Gap 10 (12-20); Blood Urea Nitrogen 16 mg/dL (9-16); Calcium 9.1 mg/dL (8.4-10.2); Carbon Dioxide 28 mmol/L (22-29); Chloride 104 mmol/L (96-108); Estimated Glomerular Filt Rate > 60; Glucose Random 113 mg/dL (60-115); Iron 32 mcg/dL (45-160); Percent Iron Saturation 7 % (15-50); Potassium 4.8 mmol/L (3.3-5.1); Sodium 137 mmol/L (135-145); Total Iron Binding Capacity 445 mcg/dL (228-428); Unsaturated Iron Binding 413 ug/dL
== END 2021-02-02 07:07 | disposition home or self-care (01) ==
LOC: HO.LAB 07:06
PROVIDERS: PCP Internal Medicine; Visit Provider Internal Medicine
DX: D64.9 Anemia, unspecified (principal); Z98.890 Other specified postprocedural states
CPT/HCPCS: 36415; 80048; 83540; 85025

== ENCOUNTER 2021-02-02 07:09 | Outpatient (REF) | payer OTHER, SELFPAY | END 2021-02-02 07:10 | disposition home or self-care (01) | LOC: HO.LAB 07:09 | PROVIDERS: PCP Internal Medicine; Visit Provider Internal Medicine | DX: Z20.822 Contact with and (suspected) exposure to COVID-19 (principal) | CPT/HCPCS: C9803; U0003; U0005 ==

== ENCOUNTER 2021-03-27 14:04 | Outpatient (REF) | payer OTHER, SELFPAY ==
[2021-03-27 14:59] LABS: Binax Internal Control QC Valid; Binax Now Covid-19 Ag Positive (Negative)
== END 2021-03-27 14:05 | disposition home or self-care (01) ==
LOC: HO.LAB 14:04
PROVIDERS: Visit Provider Internal Medicine
DX: Z20.822 Contact with and (suspected) exposure to COVID-19 (principal)
CPT/HCPCS: 36415; C9803

== ENCOUNTER 2021-04-24 06:02 | Day surgery (SDC) | payer OTHER, SELFPAY ==
[2021-03-30 13:13] VITALS: BMI 33.3
--- NOTE | 2021-04-23 09:19 | HO.ANESPROP2 ---
Documented by User: Sahara Cuello NP 04/23/21 09:21 HPI - Anesthesia Eval Consult details Narrative: 55yo M for Upper Endoscopy s/p EGD 12/2020 with MAC PMF Active Problems Active Problems: All Active Problems (Updated 03/27/21 @ 16:42 by Vesta Meyer RN) Acute upper gastrointestinal bleeding (Acute) Gallstones (Acute) Past Medical History Medical History (Updated 03/27/21 @ 16:42 by Vesta Meyer RN) Barretts esophagus BPH (benign prostatic hyperplasia) Enlarged prostate Gallstones GI bleed Hiatal hernia PUD (peptic ulcer disease) Renal calculi Sleep apnea in adult Family History Family history of problems with anesthesia: No Surgical History Surgical History (Updated 03/27/21 @ 16:41 by Vesta Meyer RN) History of esophagogastroduodenoscopy (EGD) History of laparoscopic cholecystectomy Hx of colonoscopy Hx of tonsillectomy S/P carpal tunnel release History of Problems with Anesthesia: No Social History Social History Household Members: Spouse and Children Housing: House Do you presently have visiting nurse or other home services: No Alcohol intake: never Patient Tobacco Use Status: Never used Tobacco Use of substances other than those prescribed or required for medical reasons: No Are you DNR?: No Advance Directives: No Advance Directives Information Provided: Yes Recently lost weight without trying: No Nutrition Risks: No Nutritional Risk service: No Current occupational status: employed 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 Meds Allergies Allergy/AdvReac Type Severity Reaction Status Date / Time Motrin Allergy Severe swelling Uncoded 08/22/20 05:16 Home Medications Medication Instructions Recorded Confirmed Last Taken Type famotidine 03/27/21 03/27/21 Unknown History Exam Exam Date and Time: April 23, [id number] Height,Weight and Vital Signs: Height 5 ft 8 in Weight 99.337 kg Pertinent Lab Results Pertinent Lab Results: Laboratory Tests 02/02/21 02/02/21 07:28 07:28 WBC 7.1 Hgb 11.1 L Hct 34.2 L Plt Count 385 D Sodium 137 Potassium 4.8 Chloride 104 Carbon Dioxide 28 BUN 16 Creatinine 0.88 Assessment and Plan Assessment Anesthesia Assessment: Chart Reviewed Final Anesthetic Review Family History of Problems with Anesthesia: No History of Problems with Anesthesia: No Documented by User: Yvonne Gant MD 04/24/21 07:44 [facility] Past Medical History Medical History (Updated 03/27/21 @ 16:42 by Vesta Meyer, RN) Barretts esophagus BPH (benign prostatic hyperplasia) Enlarged prostate Gallstones GI bleed Hiatal hernia PUD (peptic ulcer disease) Renal calculi Sleep apnea in adult Surgical History Surgical History (Updated 03/27/21 @ 16:41 by Vesta Meyer RN) History of esophagogastroduodenoscopy (EGD) History of laparoscopic cholecystectomy Hx of colonoscopy Hx of tonsillectomy S/P carpal tunnel release Social History Social History Household Members: Spouse and Children Housing: House Do you presently have visiting nurse or other home services: No Alcohol intake: never Patient Tobacco Use Status: Never used Tobacco Use of substances other than those prescribed or required for medical reasons: No Are you DNR?: No Advance Directives: No Advance Directives Information Provided: Yes Recently lost weight without trying: No Nutrition Risks: No Nutritional Risk service: No Current occupational status: employed 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 Meds Allergies Allergy/AdvReac Type Severity Reaction Status Date / Time Motrin Allergy Severe swelling Uncoded 08/22/20 05:16 Home Medications Medication Instructions Recorded Confirmed Last Taken Type famotidine 03/27/21 03/27/21 Unknown History Exam Airway Mallampati Class: II TM Dist: >3cm Neck ROM: Full Heart: rrr Lungs: cta Assessment and Plan Assessment Anesthesia Assessment: Anesthesia Plan Discussed and Chart Reviewed Final Anesthetic Review NPO: Yes ASA Class: II Final Preanesthetic Review: No Changes in Pt Med Stat, Meds/Allgs Chart Reviewed and Consent Obtained/Reviewed Patient Risk: Intermediate Procedure Risk: Intermediate Anesthetic Plan Anesthetic Plan: MAC: Disposition: Standard PACU
[2021-04-24 06:43] VITALS: BMI 32.6
[2021-04-24 06:54] VITALS: BP 145/93; PULSE 75; RESP 16; TEMP 36.5; O2SAT 97
[2021-04-24] MEDS: Lactated Ringers 1,000 ML 100 ML IVCONT (07:01)
[2021-04-24 08:11] VITALS: BP 111/73; PULSE 94; RESP 16; TEMP 36.3; O2SAT 96
--- NOTE | 2021-04-24 08:18 | PM.OP ---
Brief Operative Note Date of Service: 04/24/21 Pre-op diagnosis: Hx of gastric ulcer Post-op diagnosis: other (Duodenitis, Gastritis, Hiatal hernia) Procedure: EGD Surgeon: Hemanth Santos Anesthesia: MAC Was an [employer] used for this Procedure?: No Estimated blood loss (mL): 0 Pathology: none sent Condition: stable Disposition: PACU
[2021-04-24 08:26] VITALS: BP 121/80; PULSE 73; RESP 16; TEMP 36.3; O2SAT 97
--- NOTE | 2021-04-24 08:59 | OP_ITS ---
SURGEON: Hemanth Santos MD INDICATIONS: The patient presents for followup of gastric ulcer. Full consent has been obtained from him for this, including risks of bleeding and perforation. PREOPERATIVE DIAGNOSIS: History of gastric ulcer. POSTOPERATIVE DIAGNOSIS: PROCEDURE PERFORMED: Esophagogastroduodenoscopy. ESTIMATED BLOOD LOSS: COMPLICATIONS: ANESTHESIA: Medication used, monitored anesthesia care. ASSISTANTS: SPECIMENS: POSTOPERATIVE DIAGNOSES: History of gastric ulcer, mild duodenitis, mild gastritis, hiatal hernia. DESCRIPTION OF PROCEDURE: The patient was placed in the left lateral decubitus position. The Olympus video gastroscope was passed in the posterior oropharynx and the upper esophagus under direct vision. The scope was passed slowly into the distal esophagus. The gastroesophageal junction appeared at 38 cm. There was no esophagitis. There were some small areas of irregularity consistent with his previously known Contreras's mucosa. There were no masses nor ulceration. The scope entered into the stomach. There was a small hiatal hernia. The scope was advanced to pylorus, and the duodenum was cannulated to the descending portion. The duodenum including the bulb was carefully inspected. The duodenal bulb had several less than 5 mm erosions but no ulceration nor mass. There was no bleeding. The scope was withdrawn back in the stomach. The gastric antrum had some areas of erythema and 1 small area of scarring above the pylorus. There was no sign of any active ulcer disease nor erosive gastritis. There was good peristalsis. Biopsies were not obtained as they had been obtained recently and were negative for H pylori. The scope was retroflexed visualizing the proximal stomach carefully, which appeared normal, without any sign of mass or ulceration. The scope was straightened and withdrawn back to the esophagus. The esophageal mucosa otherwise appeared normal. The scope was withdrawn from the patient. He tolerated the procedure well and was returned to the recovery area in stable condition. IMPRESSION: 1. Mild duodenitis. 2. Mild gastritis. 3. Hiatal hernia. 4. History of Contreras esophagus. PLAN: The patient has been using famotidine and sucralfate as he was unable to tolerate PPIs due to headache. I shall have him stop the sucralfate and make sure that he is on famotidine 40 mg b.i.d. If things are stable, he could see me on a p.r.n. basis. He was reminded to stay off all NSAIDs and aspirin long-term. He is aware that he needs a followup upper endoscopy in 2022 in regard to the finding of the Contreras esophagus in December 2020. MD ROJAS Hoang/CLIFFORD / [id number]
== END 2021-04-24 09:11 | disposition home or self-care (01) ==
PROVIDERS: PCP Internal Medicine; Visit Provider Internal Medicine
PROC: 0DJ08ZZ Inspection of Upper Intestinal Tract, Via Natural or Artificial Opening Endoscopic (ICD-10-PCS; CPT 43235; principal; 2021-04-24 08:00)
DX: K25.0 Acute gastric ulcer with hemorrhage (principal); K22.70 Barrett's esophagus without dysplasia; K29.50 Unspecified chronic gastritis without bleeding; K29.80 Duodenitis without bleeding; K44.9 Diaphragmatic hernia without obstruction or gangrene; G47.33 Obstructive sleep apnea (adult) (pediatric); Z79.899 Other long term (current) drug therapy; Z87.442 Personal history of urinary calculi; Z90.49 Acquired absence of other specified parts of digestive tract
CPT/HCPCS: 43235

== ENCOUNTER 2022-02-18 09:05 | Outpatient (REF) | payer OTHER, SELFPAY ==
[2022-02-18 09:30] LABS: MANUAL DIFF FLAG NO
[2022-02-18 10:31] LABS: Basophils Absolute Auto 0.1 X10*3/uL (0.0-0.2); Basophils Percent Auto 0.9 % (0-2); Eosinophils Absolute Auto 0.3 X10*3/uL (0.0-0.4); Eosinophils Percent Auto 3.3 % (0-4); Hematocrit 46.9 % (42.0-52.0); Hemoglobin 15.6 g/dl (14.0-18.0); Imm Gran Abs Auto 0.03 X10*3/uL (0.00-0.03); Imm Gran Pct Auto 0.3 % (0.0-0.4); Lymphocytes Absolute Auto 1.5 X10*3/uL (1.2-4.9); Lymphocytes Percent Auto 16.4 % (20-40); Mean Corpuscular HGB Conc 33.3 g/dl (31.0-36.0); Mean Corpuscular Hemoglobin 30.4 pg (27.0-33.0); Mean Corpuscular Volume 91.2 fL (80.0-98.0); Mean Platelet Volume 11.3 fL (9.4-12.4); Monocytes Absolute Auto 0.7 X10*3/uL (0.1-1.2); Monocytes Percent Auto 7.5 % (2-11); Neutrophils Absolute Auto 6.5 x10*3/uL (2.0-8.3); Neutrophils Percent Auto 71.6 % (45-73); Platelet Count 282 X10*3/uL (160-400); Red Blood Count 5.14 X10*6/uL (4.60-5.80); Red Cell Distribution Width 12.7 % (11.0-16.0)
[2022-02-18 11:35] LABS: Alanine Aminotransferase 23 U/L (0-40); Albumin Level 4.4 g/dL (3.5-5.0); Alkaline Phosphatase 86 U/L (39-117); Anion Gap 10 (12-20); Aspartate Amino Transferase 19 U/L (5-37); Bilirubin Total 1.1 mg/dL (0.0-1.0); Blood Urea Nitrogen 20 mg/dL (9-16); Calcium 9.5 mg/dL (8.4-10.2); Carbon Dioxide 28 mmol/L (22-29); Chloride 101 mmol/L (96-108); Cholesterol 229 mg/dL; Estimated Glomerular Filt Rate > 60; Glucose Fasting 101 mg/dL (60-99); HDL Cholesterol 49 mg/dL; LDL Cholesterol Calculated 159 mg/dl; Potassium 5.1 mmol/L (3.3-5.1); Prostate Specific Antigen Scr 0.71 ng/mL (<0.05-4.0); Sodium 134 mmol/L (135-145); Total Protein 7.3 g/dL (6.5-8.0); Triglycerides 109 mg/dL
== END 2022-02-18 09:06 | disposition home or self-care (01) ==
LOC: HO.LAB 09:05
PROVIDERS: PCP Internal Medicine; Visit Provider Internal Medicine
DX: Z00.00 Encounter for general adult medical examination without abnormal findings (principal); Z12.5 Encounter for screening for malignant neoplasm of prostate
CPT/HCPCS: 36415; 80053; 80061; 84153; 85025

== ENCOUNTER → 2022-03-11 15:06 | Outpatient (BNVA) | payer OTHER, SELFPAY | PROVIDERS: PCP Internal Medicine; Referring Provider Internal Medicine; Visit Provider Surgery | DX: D17.1 Benign lipomatous neoplasm of skin and subcutaneous tissue of trunk (principal) ==

== ENCOUNTER 2022-03-31 15:09 | Outpatient (REF) | payer OTHER, SELFPAY | END 2022-03-31 15:10 | disposition home or self-care (01) | LOC: HO.LNP 15:09 | PROVIDERS: Pathology Cytopathology; PCP Internal Medicine; Visit Provider Surgery | DX: D17.1 Benign lipomatous neoplasm of skin and subcutaneous tissue of trunk (principal) | CPT/HCPCS: 11404; 88304; 88341; 88342; 88377 ==

== ENCOUNTER → 2022-04-14 10:40 | Outpatient (BNVA) | payer OTHER, SELFPAY | PROVIDERS: PCP Internal Medicine; Referring Provider Internal Medicine; Visit Provider Surgery | DX: Z13.89 Encounter for screening for other disorder (principal) ==

== ENCOUNTER 2022-08-03 15:56 | Outpatient (REF) | payer OTHER, SELFPAY ==
--- NOTE | ~2022-08-03 | XR_ITS ---
EXAMINATION: XR KNEE, LEFT CLINICAL INFORMATION: Left knee pain COMPARISON: None available. TECHNIQUE: Four views of the left knee. FINDINGS: There is loss of medial and patellar femoral compartment joint space with moderate inferior patellar spurring. No loose bodies or joint effusion seen. No bony erosive changes. XR/XR knee LT 4V IMPRESSION: Mild degenerative changes medial and patellofemoral compartment with moderate inferior patellar spurring. No visible acute fracture or dislocation seen.
== END 2022-08-03 15:57 | disposition home or self-care (01) ==
LOC: HO.XRAY 15:56
PROVIDERS: PCP Internal Medicine; Visit Provider Internal Medicine
DX: M25.562 Pain in left knee (principal)
CPT/HCPCS: 73564

== ENCOUNTER 2022-09-24 08:08 | Outpatient (REF) | payer OTHER, SELFPAY | END 2022-09-24 08:09 | disposition home or self-care (01) | LOC: HO.HOSX 08:08 | PROVIDERS: Visit Provider Physician Assistant | DX: Z13.89 Encounter for screening for other disorder (principal) ==